=== PATIENT | female | born 1935 | race African-American/Black ===

== ENCOUNTER 2017-02-25 08:23 | Day surgery (SDC) | payer OTHER ==
[~2017-02-25] VITALS: Ht 177.8 cm; Wt 79.6 kg
[2017-02-25] MEDS ORDERED: HYDR25TA5 PO (09:24)
[2017-02-25] MEDS ORDERED: LOSA50TA PO (09:24)
[2017-02-25] MEDS ORDERED: GLIM2TAB PO (09:24)
[2017-02-25] MEDS ORDERED: ARIC10TA PO (09:24)
[2017-02-25] MEDS ORDERED: ATOR20TA15 PO (09:24)
[2017-02-25 09:31] LABS: AUTOMATED NEUTROPHIL # 2.4 TH/MM3 (1.8-7.7); BASOPHIL # 0.1 TH/MM3 (0-0.2); BASOPHIL % 2.2 % (0.0-2.0); EOSINOPHIL # 0.2 TH/MM3 (0-0.4); EOSINOPHIL % 4.4 % (0.0-4.0); HEMATOCRIT 28.8 % (35.0-46.0); HEMO FLAGS DIFF FINAL; LYMPH % 30.2 % (9.0-44.0); LYMPHOCYTE # 1.4 TH/MM3 (1.0-4.8); MEAN CELL VOLUME 89.1 FL (80.0-100.0); MEAN CORPUSCULAR HEMOGLOBIN 29.3 PG (27.0-34.0); MEAN CORPUSCULAR HGB CONC 32.9 % (32.0-36.0); MONO % 11.1 % (0.0-8.0); NEUT % 52.1 % (16.0-70.0); PLATELET COUNT 268 TH/MM3 (150-450); RED BLOOD COUNT 3.23 MIL/MM3 (4.00-5.30); RED CELL DISTRIBUTION WIDTH 13.9 % (11.6-17.2); WHITE BLOOD COUNT 4.6 TH/MM3 (4.0-11.0)
[2017-02-25 09:39] LABS: APTT (PATIENT) 21.5 SEC (24.3-30.1)
[2017-02-25 09:43] VITALS: BP 190/85; PULSE 61; RESP 16; TEMP 98.2; O2SAT 99
[2017-02-25 09:58] LABS: BICARBONATE 27.2 MEQ/L (21.0-32.0); POTASSIUM 4.8 MEQ/L (3.5-5.1)
[2017-02-25] MEDS ORDERED: HEPARIN-NS/PF INJ 500 ML ONE (10:40)
[2017-02-25] MEDS ORDERED: MIDAZOLAM HCL 2 MG/2 ML VIAL ONE (10:41)
[2017-02-25] MEDS ORDERED: VERAPAMIL HCL 5 MG/2 ML VIAL ONE (10:42)
[2017-02-25] MEDS ORDERED: HEPARIN SODIUM - IV 10,000 UNITS/10 ML VIAL ONE (10:42)
[2017-02-25] MEDS ORDERED: NITROGLYCERIN INJ 5 ML ONE (10:42)
[2017-02-25] MEDS ORDERED: IOHEXOL 350 MG/ML 100 ML BTL (for Cath Lab) OTHER ONE (10:43)
[2017-02-25] MEDS ORDERED: hydrALAZINE HCL 20 MG/ML VIAL ONE (11:41)
[2017-02-25] MEDS ORDERED: hydrALAZINE HCL 20 MG/ML VIAL IV PUSH PRN (12:00)
[2017-02-25] MEDS ORDERED: MISC INFORMATION XX ONE (12:00)
[2017-02-25] MEDS ORDERED: ONDANSETRON HCL 4 MG/2 ML VIAL IV PRN (12:00)
--- NOTE | 2017-02-25 12:01 | CATHPROC ---
Ryzing HIS Report Study Information Study Number Admission Scheduled Start Study Start [id number] 02/25/2017 02/25/2017 Feb 25 2017 10:06AM Referring Institution Admit Source Facility Department 1 Other [facility] - [facility] Physician and Clinical Staff Initial Diaz Sherman Instructional Resource Teacher Brittany Askew RN Other cathlab, cathlab Recorder Mirella Beltre BSRN Scrub Bakari, Bhakti,FLOOR COVERING PRINTER ASSISTANT TECH2 Procedures Performed Procedure Location (Site) Vessel Name Coronary Angiograms Coronary Angiograms LCA Left Coronary Coronary Angiograms RCA Right Coronary L Heart Cath Equipment Time Stenographic Court Reporter Description Size Mfg Part Number Used/Scraped TRANSDUCER, TRUWAVE 10:08 SOLIS UGARTE * [id number] Used W/Almondy INTRODUCER SET, [id number]-502-10.0- 11:19 [employer] FR 5 Used MICROPUNCTURE, STIFFENED SC-NT-U-SST MEDICAL CONCEPT DRAPE, RADIAL FEMORAL FULL 10:08 * [id number] Used DEVELOPMENT BODY 10:08 [employer] PACK, CCL CUSTOM * [id number] Used 10:08 [employer] SUPPORT, ARTERIAL ADULT [id number] Used 10:08 [employer] MEDICAL WIRE, EXCHANGE 260CM 3MMJ 260CM [id number] Used 10:08 [employer] MANIFOLD, 4 PORT * [id number] Used 10:08 [employer]ED OMNIPAQUE, 350 MG, 100ML 100ML [id number] Used 10:08 [employer] MEDICAL BLANKET,WARM AIR CCL * [id number] Used BAND, RADIAL COMPRESSION TR 10:08 TERUMO MEDICAL 29CM [id number] Used LARGE 11:24 [employer]UMO MEDICAL SHEATH, FR5 TERUMO (10CM) FR 5 [id number] Used Equipment Model, Serial, Lot Number and Expiration Data Description Model Number Serial Number Lot Number Expiration Date INTRODUCER SET, [id number] 01-13-2020 MICROPUNCTURE, STIFFENED History: Current Medications Medication Dosage/Unit Route Frequency Last Date/Time Taken LIPITOR HCTZ Statins (any) Unknown Comment: amaryl History: Allergies Allergy Reaction No Known Allergies History: Risk Factors Family History of Hypertension Dyslipidemia Previous PA Previous Heart Failure Premature CAD Yes Yes No No No Prior Valve Prior PCI Prior CABG Surgery No No No Cerebrovascular Peripheral Artery Chronic Lung On Dialysis Diabetes Disease Disease Disease No Yes No No Yes History: Stress Tests Stress or Imaging Studies Performed Yes Standard Exercise Stress Test No Stress Echo No Stress Test SPECT Stress Test SPECT Result Stress Test SPECT Ischemia Risk/Extent Yes Positive Intermediate Stress Test CMR No Cardiac CTA Coronary Calcium Score No No History: Other Disease Selection Items HTN Renal Failure/Insufficiency History: Other Current Smoker No Labs Hgb (g/dl) Hct (%) RBC (MIL/MM3) WBC (l/cumm) Platelets (thousands) 12.00-18.00 37.00-55.00 4.80-6.20 4.80-10.80 140.00-450.00 9.5 28.8 3.2 4.6 268 Glucose (mg/dl) BUN (mg/dl) Creatinine (mg/dl) BUN:Creatinine (1:x) 60.00-110.00 8.00-20.00 0.10-9.00 10.00-20.00 97 31 1.8 17.2 Na (meq/l) K (meq/l) Cl (meq/l) CO2 (mmol/L) Ca (mg/dl) 138.00-146.00 3.80-5.10 101.00-111.00 23.00-30.00 9.00-10.50 139 4.8 105 27.2 9.1 Medication Medication Total Dose (Bolus/Oral) Medication Total Dosage/Unit 1% XYLOCAINE 20 mL APRESOLINE 20 mg FENTANYL 25 mcg VERSED 0.5 mg Medications (Bolus/Oral) Medication Time Given Dosage/Unit Administered By Reason VERSED 02/25/2017 11:17:00 AM 0.5 mg Brittany Askew As per physicians shimon bal order 0.5 mg VERSED given in lab by Brittany Askew RN in Left Antecubital via Peripheral IV. Ordered by Diaz Lezama. Reason: As per physicians verbal order. FENTANYL 02/25/2017 11:18:37 AM 25 mcg Brittany Askew 25 mcg FENTANYL given in lab by Brittany Askew RN in Left Antecubital via Peripheral IV. Ordered Diaz Rutherford. 1% XYLOCAINE 02/25/2017 11:18:51 AM 20 mL Diaz Lezama As per physicians verbal order 20 mL 1% XYLOCAINE given in lab by Diaz Lezama in Right Groin via Subcutaneous. Ordered by Diaz Maravilla. Reason: As per physicians verbal order. APRESOLINE 02/25/2017 11:43:00 AM 10 mg Mrache, Brittany 10 mg APRESOLINE given in lab by Brittany Askew RN in Left Antecubital via Peripheral IV. Ordered by Diaz Lezama. APRESOLINE 02/25/2017 11:50:05 AM 10 mg Mrache, Brittany 10 mg APRESOLINE given in lab by Brittany Askew RN in Left Antecubital via Peripheral IV. Ordered by Diaz Lezama. Medication (Drip) Medication Time Given Dosage/Unit Concentration/Unit Diluent (ml) Solution IV Solutions 02/25/2017 10:45:51 AM 0 mL (IV) NaCl .9 IV Solutions given in lab by Brittany Askew RN in Left Antecubital via Peripheral IV. Pump/Drip Fl ow = 100 ml/hr using NaCl .9. Ordered by Diaz Lezama. Reason: As per physicians verbal order. Initial Case Assessment Cardiovascular HR NIBP 60 188/86 Edema Present Skin color Skin None Normal Warm Dry Neurological State Oriented to time-place- Alert Moves all extremities person Respiration - General Respiration Rate SpO2 (%) (B/min) 18 99 Final Case Assessment Cardiovascular HR Rhythm NIBP Chest Pain 63 sr 171/70 0 Edema Present Skin color Skin None Normal Warm Dry Circulatory - Right Pulses Dorsalis Pedis Femoral 2 2 Scale (0,1,2,3,4,d) Circulatory - Left Pulses Dorsalis Pedis Femoral 2 2 Scale (0,1,2,3,4,d) Circulatory - Lower Extremities Color Lower Right Color Lower Left Normal Normal Neurological State Oriented to time-place- Alert Moves all extremities person Respiration - General SpO2 (%) 99 Chronological Log Time Study Chronological Log 10:43:02 Patient arrived via Bed. 10:43:05 Patient Name, D.O.B, / Armband Verified By R.N. 10:43:07 Consent signed by the physician and the patient and verified by the [employer] staff. 10:43:09 Pre-op and post- op instructions given; patient acknowledges understanding of instructions. 10:43:12 Allens test performed on the right radial and ulnar artery. 10:43:17 Patient has been NPO for More than 6Hrs. 10:45:15 Allens test performed on the left radial and ulnar artery. 10:45:21 Patient Warmer Placed on the Table. 10:45:31 A # 22 IV was noted in the Antecubital (left). Grade = ~GRADE~ IV Solutions given in lab by Brittany Askew, RN in Left Antecubital via Peripheral IV. Pump/D rip Flow = 100 ml/hr 10:45:51 using NaCl .9. Ordered by Diaz Lezama. Reason: As per physicians verbal order. 10:57:58 Reference ECG taken 10:58:05 History and physical on the chart or being dictated. Vitals capture started with the following parameters, Patient=Adult, Interval=15 min, Initial P bwqzqhd=328 mmHg, 10:58:31 Deflation Rate=5 mmHg 10:59:52 HR=63 bpm, IATT=731/89 mmhg, SpO2=98.0 %, Resp=0 B/min, Pain=0, Hcetor=10, Pruitt=2 11:04:15 HR=62 bpm, GIOX=206/86 mmhg, SpO2=98.0 %, Resp=10 B/min, Pain=0, Hector=10, Pruitt=2 11:05:50 Pressure channel 1 zeroed. Assessment: Initial Case, HR=60 BPM, RJAM=635/86 mmhg, Edema=None, Color=Normal, Skin = Warm, D ry 11:07:33 Neurological: State=Alert, Ox3, LYNCH Respiration: Resp=18 B/min, SpO2=99 % 11:08:23 Right groin prepped with 2% chlorhexidine, and with a 3 min. waiting time. 11:09:18 HR=61 bpm, HPKK=471/81 mmhg, SpO2=99.0 %, Resp=19 B/min, Pain=0, Hector=10, Pruitt=2 11:10:33 MD paged 11:15:02 HR=58 bpm, TSLZ=355/67 mmhg, SpO2=99.0 %, Resp=13 B/min, Pain=0, Hector=10, Pruitt=2 11:16:29 MD arrived. 0.5 mg VERSED given in lab by Brittany Askew, RN in Left Antecubital via Peripheral IV. Order ed by Teja, 11:17:00 Diaz. Reason: As per physicians verbal order. Time Out. Correct patient, correct procedure,correct physician, ,power injector loaded or not l oaded with contrast with 11:17:34 surgical team present. Time Out Concurred by MD, individual staff and CONGREGATIONAL CARE PASTOR in procedure 11:17:52 Presedation re-assessment performed by Ingredient Mixer RN. 25 mcg FENTANYL given in lab by Brittany Askew, TEDDY in Left Antecubital via Peripheral IV. Ord ered by Teja 11:18:37 Diza. 11:18:48 Case Start 20 mL 1% XYLOCAINE given in lab by Diaz Lezama in Right Groin via Subcutaneous. Ordered b y Diaz Lezama. 11:18:51 Reason: As per physicians verbal order. 11:19:07 Access site was Right Femoral Artery. 11:19:16 HR=61 bpm, PQZG=641/80 mmhg, SpO2=99.0 %, Resp=8 B/min, Pain=0, Hector=10, Pruitt=2 A INTRODUCER SET, MICROPUNCTURE, STIFFENED FR 5 was advanced into the Fem Art (right) using the 11:21:21 Percutaneous technique. A SHEATH, FR5 TERUMO (10CM) FR 5 was exchanged in the Fem Art (right). This was necessary in or leticia to 11:22:10 accomodate a larger catheter. Recorded Pressure: Ao, HR=63, Condition=Condition 1 11:22:40 (Aorta) Ao 196/63/112 A JR 4.0 INFINITI CATHETER FR 5 was advanced over a wire. OMNIPAQUE, 350 MG, 100ML 100ML was us ed for 11:24:08 injections. 11:24:19 HR=61 bpm, HTQD=391/78 mmhg, SpO2=97.0 %, Resp=12 B/min, Pain=0, Hector=10, Pruitt=2 11:24:34 The ~SITE~ was injected and visualized at various angles. contrast used. Recorded Pressure: LV, HR=58, Condition=Condition 1 11:24:51 (Left Ventricle) LV 183/0/6 Recorded Pressure: LV, HR=65, Condition=Condition 1 11:25:00 (Left Ventricle) LV 185/1/11 Recorded Pressure: LV, Ao, HR=69, Condition=Condition 1 11:25:11 (Left Ventricle) LV 186/5/7, (Aorta) Ao 185/69/115 11:26:41 The RCA was injected and visualized at various angles. OMNIPAQUE, 350 MG, 100ML 100ML used . 11:29:16 HR=62 bpm, FQSC=494/73 mmhg, SpO2=97.0 %, Resp=10 B/min, Pain=0, Hector=10, Pruitt=2 After removing the current catheter a JL 4.0 INFINITI CATHETER FR 5 was advanced over a WIRE, E XCHANGE 260CM 11:29:23 3MMJ 260CM. 11:29:35 The LCA was injected and visualized at various angles. OMNIPAQUE, 350 MG, 100ML 100ML used . 11:34:21 HR=60 bpm, IEOE=382/70 mmhg, SpO2=98.0 %, Resp=9 B/min, Pain=0, Hector=10, Rpuitt=2 11:36:08 Catheter was removed 11:36:24 Case End Assessment: Final Case, HR=63 BPM, Rhythm=sr, IHHL=883/70 mmhg, Chest Pain=0, Edema=None, Color =Normal, Skin = Warm, Dry Right Pulses: Joaquin Ped=2, Femoral=2 Left Pulses: Joaquin Ped=2, Femoral=2 11:36:34 Lower Right Extremities: Color=Normal Lower Left Extremities: Color=Normal Neurological: State=Alert, Ox3, LYNCH Respiration: SpO2=99 % 11:37:14 Sheath removed; pressure applied to access site. 11:37:24 Sterile dressing applied to site 11:37:25 No case complications noted. 11:37:28 Cine recording checked. 11:37:30 Bedside Report will be given. 11:37:33 Contrast Scanned 11:37:38 A Left Heart Cath was performed. 11:37:44 Clinical correlaton risk stratification. 11:39:59 HR=86 bpm, UXFN=636/131 mmhg, SpO2=98.0 %, Resp=11 B/min, Pain=0, Hector=10, Pruitt=2 10 mg APRESOLINE given in lab by Brittany Askew, RN in Left Antecubital via Peripheral IV. Or dered by Teja, 11:43:00 Diaz. 11:44:21 HR=75 bpm, LKRY=575/96 mmhg, SpO2=99.0 %, Resp=13 B/min, Pain=0, Hector=10, Pruitt=2 11:48:16 NIBP STAT measurement started. 11:49:04 HR=80 bpm, GDJV=695/83 mmhg, VaX0=596.0 %, Resp=17 B/min, Pain=0, Hector=10, Pruitt=2 10 mg APRESOLINE given in lab by Brittany Askew, TEDDY in Left Antecubital via Peripheral IV. Or dered by Teja 11:50:05 Diaz. 11:53:04 NIBP STAT measurement started. 11:53:46 HR=68 bpm, LNEK=684/70 mmhg, LwH3=923 %, Resp=21 B/min 11:59:20 HR=74 bpm, GCSE=494/58 mmhg, SpO2=99.0 %, Resp=16 B/min, Pain=0, Hector=10, Pruitt=2 12:00:30 Patient moved to stretcher End Study - Contrast Media Used In Study Contrast Total Opened (mL) Total Used (mL) Total Wasted (mL) Omnipaque 150 60 90 End Study - Maximum Contrast Load Max Contrast Load (mL) 221.1 End Study - Radiation Exposure Fluoro Time (minutes) 3.0 End Study - Sheaths Sheaths Pulled By Sheath Hold Time (min) Bhakti Villegas End Study - Patient Disposition Complications Transferred To Interventional Outcome No [employer] [facility] Holding No attempt made
--- NOTE | 2017-02-25 14:49 | PD.CAR.PN ---
CVT Progress Note Subjective/Hospital Course: Risk Model and Variables - STS Adult Cardiac Surgery Database Version 2.81 RISK SCORES About the STS Risk Calculator Procedure: CAB Only Risk of Mortality: 6.907% Morbidity or Mortality: 42.716% Long Length of Stay: 26.071% Short Length of Stay: 8.569% Permanent Stroke: 3.562% Prolonged Ventilation: 30.526% DSW Infection: 1.508% Renal Failure: 21.427% Reoperation: 10.913% Objective: Vital Signs Date Time Temp Pulse Resp B/P Pulse Ox O2 Delivery O2 Flow Rate FiO2 02/25/17 13:08 100 Room Air 02/25/17 09:43 98.2 61 16 190/85 99 Labs: Laboratory Tests Test 02/25/17 09:00 White Blood Count 4.6 TH/MM3 (4.0-11.0) Red Blood Count 3.23 MIL/MM3 (4.00-5.30) Hemoglobin 9.5 GM/DL (11.6-15.3) Hematocrit 28.8 % (35.0-46.0) Mean Corpuscular Volume 89.1 FL (80.0-100.0) Mean Corpuscular Hemoglobin 29.3 PG (27.0-34.0) Mean Corpuscular Hemoglobin 32.9 % Concent (32.0-36.0) Red Cell Distribution Width 13.9 % (11.6-17.2) Platelet Count 268 TH/MM3 (150-450) Mean Platelet Volume 7.1 FL (7.0-11.0) Neutrophils (%) (Auto) 52.1 % (16.0-70.0) Lymphocytes (%) (Auto) 30.2 % (9.0-44.0) Monocytes (%) (Auto) 11.1 % (0.0-8.0) Eosinophils (%) (Auto) 4.4 % (0.0-4.0) Basophils (%) (Auto) 2.2 % (0.0-2.0) Neutrophils # (Auto) 2.4 TH/MM3 (1.8-7.7) Lymphocytes # (Auto) 1.4 TH/MM3 (1.0-4.8) Monocytes # (Auto) 0.5 TH/MM3 (0-0.9) Eosinophils # (Auto) 0.2 TH/MM3 (0-0.4) Basophils # (Auto) 0.1 TH/MM3 (0-0.2) CBC Comment DIFF FINAL Differential Comment Prothrombin Time 11.0 SEC (9.8-11.6) Prothromb Time International 1.0 RATIO Ratio Activated Partial 21.5 SEC Thromboplast Time (24.3-30.1) Sodium Level 139 MEQ/L (136-145) Potassium Level 4.8 MEQ/L (3.5-5.1) Chloride Level 105 MEQ/L (98-107) Carbon Dioxide Level 27.2 MEQ/L (21.0-32.0) Anion Gap 7 MEQ/L (5-15) Blood Urea Nitrogen 31 MG/DL (7-18) Creatinine 1.84 MG/DL (0.50-1.00) Estimat Glomerular Filtration 32 ML/MIN (>89) Rate Random Glucose 97 MG/DL (74-106) Calcium Level 9.1 MG/DL (8.5-10.1) Result Diagram: 02/25/17 0900 02/25/17 09 Lurdes Simon MD February 25, 2017 14:49
--- NOTE | 2017-02-25 16:24 | MB ---
cc: SCOTT NARAYAN SOHIT K. MD DOLINKY, ADRIENNE B. DATE OF CONSULTATION: 02/25/[address] Narayan. REASON FOR CONSULTATION Multivessel coronary artery disease. HISTORY OF PRESENT ILLNESS Ms. Brito is a very pleasant 82-year-old -[place] female who is relatively asymptomatic in regards to a cardiac history. She recently was being evaluated for cataract/ ophthalmic surgery and underwent a stress test which was abnormal. Based on this she was taken to the [facility] by Dr. Narayan and underwent a coronary angiogram today which reveals multivessel coronary artery disease with totally occluded LAD and associated moderate left main stenosis. I am now being consulted for surgical revascularization therapy. At the present time she remains pain free, hemodynamically stable with no evidence of ongoing ischemia. PAST MEDICAL HISTORY Significant for: 1. Significant Alzheimer's dimension. 2. Chronic renal insufficiency with chronic kidney disease stage III. 3. Diabetes mellitus. 4. Hyperlipidemia. 5. Hypertension. 6. Hypothyroidism. 7. Lumbago. ALLERGIES The patient reports NO KNOWN DRUG ALLERGIES. MEDICATION Current medications include: 1. Atorvastatin. 2. Benazepril. 3. Glimepiride. 4. Hydrochlorothiazide. 5. Levothyroxine. 6. Losartan. 7. Multivitamin. FAMILY HISTORY Noncontributory. SOCIAL HISTORY Social history is remarkable for a remote history of smoking half pack per day. Denies any alcohol use or illicit drug use. REVIEW OF SYSTEMS As above. All other parameters are negative. PHYSICAL EXAMINATION VITAL SIGNS: Today she is 178 cm tall, weighs 80 kilos, blood pressure is 190/85 with a heart rate of 61 which is regular, respiratory rate is 18 and she is afebrile. HEENT: Normocephalic, atraumatic. Pupils are round and reactive. Extraocular muscles are intact. NECK: No cervical lymphadenopathy, carotid bruits or JVD. CARDIOVASCULAR: Regular rate and rhythm. Normal S1-S2 without gallops, rubs or murmurs. LUNGS: Clear to auscultation bilaterally with good air exchange. ABDOMEN: Abdomen is soft, nontender, nondistended. Normoactive bowel sounds. No hepatosplenomegaly. EXTREMITIES: Bilateral lower extremity pulses are intact without cyanosis, clubbing or edema. No venous varicosities. NEUROLOGIC: Intact with no focal deficits. IMPRESSION 1. Multivessel coronary artery disease. 2. Hypertension. 3. Chronic kidney disease. 4. Diabetes mellitus. 5. Hyperlipidemia. 6. Hypothyroidism. 7. Dementia. PLAN The clinical angiographic findings were discussed in detail with the patient, her daughter and her granddaughters today. Therapeutic options available including coronary artery bypass grafting was recommended. I agree with Dr. Narayan that she will benefit from bypass to LAD, ramus, as well as distal right coronary artery distributions. The risks, complications and benefits of the surgical procedure were discussed in detail and all questions answered. She and her family appear to comprehend the given information and wish to proceed with the planned operation. We will proceed with the surgical procedure as described above next week on a Wednesday, on a first case basis. In the meantime we will obtain vein mapping, PFTs and carotid Duplex imaging. Thank you for allowing me to participate in the care of this patient. Lurdes HARRISON /2:54 PM /3:48 PM
--- NOTE | 2017-02-25 16:24 | HHI.DS ---
Discharge Summary Admission Date 02/25/17 Discharge Date: February 25, 2017 Admitting Diagnosis Abnormal stress test (1) Multi-vessel coronary artery stenosis Diagnosis: Principal Procedures Left heart catheterization (02/25/17) Multi-vessel CAD Brief History Multi-vessel CAD, asymptomatic. Plan CABG on 03/03/17. CBC/BMP: 02/25/17 0900 02/25/17 0900 Significant Findings Laboratory Tests Test 02/25/17 09:00 Red Blood Count 3.23 MIL/MM3 (4.00-5.30) Hemoglobin 9.5 GM/DL (11.6-15.3) Hematocrit 28.8 % (35.0-46.0) Monocytes (%) (Auto) 11.1 % (0.0-8.0) Eosinophils (%) (Auto) 4.4 % (0.0-4.0) Basophils (%) (Auto) 2.2 % (0.0-2.0) Activated Partial 21.5 SEC Thromboplast Time (24.3-30.1) Blood Urea Nitrogen 31 MG/DL (7-18) Creatinine 1.84 MG/DL (0.50-1.00) Estimat Glomerular Filtration 32 ML/MIN (>89) Rate Discharge Disposition: Discharge Home Discharge Instructions DIET: Follow Instructions for: Heart Healthy Diet Activities you can perform: See Additionl Instruction Additional Activity Instructio: Do not over exert yourself until surgery Diaz Lezama DO February 25, 2017 16:24
--- NOTE | 2017-02-25 17:16 | RADRPT ---
EXAM DATE/TIME: 02/25/2017 15:40 [facility] COMPARISON: No previous studies available for comparison. INDICATIONS : Preop testing. MEDICAL HISTORY : Thyroid disease. Cardiac disorders. Hypertension. Diabetes. SURGICAL HISTORY : None. ENCOUNTER: Initial ACUITY: 1 day PAIN SCORE: 3/10 LOCATION: Bilateral leg. TECHNIQUE: Venous ultrasound of the left and right leg was performed from the inguinal ligament to the proximal calf. Real-time, color Doppler and spectral tracing, compression and augmentation techniques were us ed. FINDINGS: RIGHT LEG: There is clot in the right greater saphenous vein. LEFT LEG: There is clot in the common, superficial and deep femoral vein, the popliteal and posterior tibial ve ins. CONCLUSION: Widespread DVT on the left. Superficial thrombosis on the right involving the greater saphenous vein. Aram Casey MD on February 25, 2017 at 17:12 Board Certified Radiologist. This report was verified electronically.
[2017-02-25] MEDS ORDERED: HYDROCHLOROTHIAZIDE 12.5 MG CAP PO SCH (17:30)
[2017-02-25] MEDS ORDERED: NS 1000P @30 MLS/HR (KVO) IV SCH (17:30)
[2017-02-25] MEDS ORDERED: LOSARTAN 50 MG TAB PO SCH (17:30)
[2017-02-25 17:37] LABS: BLOOD, URINE NEG (NEG); GLUCOSE,URINE NEG (NEG); KETONE, URINE NEG (NEG); NITRITE,URINE NEG (NEG); PH, URINE 6.5 (5.0-8.5); SQUAMOUS EPITHELIAL CELL URINE 1 /hpf (0-5); URINE COLOR LIGHT-YELLOW (YELLW/STRAW)
[2017-02-25 17:40] LABS: COMMENT (UR) CULT NOT INDICATED; CULTURE IF INDICATED CULT NOT INDICATED
--- NOTE | 2017-02-25 17:43 | RADRPT ---
EXAM DATE/TIME: 02/25/2017 14:57 [facility] COMPARISON: No previous studies available for comparison. INDICATIONS : Preop testing. MEDICAL HISTORY : Thyroid disease. Cardiac disorders. Hypertension. Diabetes. SURGICAL HISTORY : None. ENCOUNTER: Initial ACUITY: 1 day PAIN SCORE: 3/10 LOCATION: Bilateral neck PEAK SYSTOLIC VELOCITIES (cm/sec): ICA/CCA RATIO: Right: 0.7 Left: 0.7 ICA: Right: 111.1 Left: 98.4 CCA: Right: 154.8 Left: 149.9 ECA: Right: 205.4 Left: 98.4 VERTEBRAL: Right: 106.2 antegrade Left: 82.2 antegrade Elevated flow velocities and ICA/CCA ratios have been found to correlate with increased degrees of vessel stenosis, calculated as percentage of diameter relative to a normal segment of distal ICA/CCA FINDINGS: RIGHT CAROTID: Heavily calcified atherosclerotic plaque is seen involving carotid bulb and proximal ICA. The calcifi ed nature generates shadowing which limits the grayscale analysis. Velocity evaluation of the bulb sh ows a significant increase in velocity reaching 232 cm/s. LEFT CAROTID: Scattered calcified plaque throughout the artery, carotid bulb, and proximal ICA. No hemodynamically significant stenosis appreciated. ICA waveform is normal. VERTEBRAL ARTERIES: Antegrade flow is seen in both vertebral arteries. MISCELLANEOUS: None. CONCLUSION: 1. Calcified atherosclerotic plaque bilaterally more abundant on the right. A hemodynamically signifi cant stenosis is suspected involving the carotid bulb on the right. Consider CTA of the carotid arter ies to further evaluate. 2. No hemodynamically significant stenosis involving the left carotid. 3. Antegrade flow involving both vertebral arteries. Asad Vazquez Jr., MD on February 25, 2017 at 17:36 Board Certified Radiologist. This report was verified electronically.
--- NOTE | 2017-02-25 18:26 | RADRPT ---
EXAM DATE/TIME: 02/25/2017 16:38 [facility] COMPARISON: US LEG BILATERAL VENOUS DOPPLER, February 25, 2017, 15:40. INDICATIONS : Preop testing. MEDICAL HISTORY : Thyroid disease. Cardiac disorders. Hypertension. Diabetes. SURGICAL HISTORY : None. ENCOUNTER: Initial ACUITY: 1 day PAIN SCORE: 0/10 LOCATION: Bilateral leg. GREATER SAPHENOUS VEIN THIGH: PROXIMAL: Right 2 mm MID: Right 1 mm DISTAL: Right Non-visualized CALF: PROXIMAL: Right Non-visualized MID: Right Non-visualized DISTAL: Right Non-visualized FINDINGS: The venous system of the lower extremities are patent by color Doppler imaging. Measurements of the leg veins (in mm) are listed above. Only the upper and mid greater saphenous vein is seen on the right. It appears very small with very l ittle flow. There was some question of thrombus in the right greater saphenous vein on the DVT study. Although thrombus is not seen on these images, the vessel is quite small. CONCLUSION: Small greater saphenous vein only seen in the upper and mid thigh. Aram Olivas MD on February 25, 2017 at 18:21 Board Certified Radiologist. This report was verified electronically.
--- NOTE | 2017-02-25 18:43 | EKG ---
Date Performed: 02/25/2017 Time Performed: 09:27:28 PTAGE: 82 years EKG: Sinus bradycardia with sinus arrhythmia. Leftward axis Left bundle branch block Abnormal EC G NO PREVIOUS TRACING DOCTOR: Artur Figueroa Interpretating Date/Time 02/25/2017 18:42:21
--- NOTE | 2017-02-25 19:14 | RADRPT ---
EXAM DATE/TIME: 02/25/2017 18:38 [facility] COMPARISON: No previous studies available for comparison. INDICATIONS : Evaluate for pneumonia, pneumothorax, or communicable disease; preop. MEDICAL HISTORY : Thyroid disease. Cardiac disorders. Hypertension. Diabetes SURGICAL HISTORY : None. ENCOUNTER: Initial ACUITY: 1 day PAIN SCORE: 0/10 LOCATION: Bilateral chest FINDINGS: PA and lateral views of the chest demonstrate the lungs to be symmetrically aerated without evidence of mass, infiltrate or effusion. Lungs do appear mildly hyperinflated. The cardiomediastinal contour s are unremarkable. Osseous structures are intact. CONCLUSION: No acute disease. The lungs do appear mildly hyperinflated. Aram Olivas MD on February 25, 2017 at 19:12 Board Certified Radiologist. This report was verified electronically.
--- NOTE | 2017-02-25 23:29 | MA ---
cc: DIAZ NARAYAN DO DATE February 25, 2017 PROCEDURE Left heart catheterization, coronary angiogram, moderate sedation 30 minutes PREPROCEDURE DIAGNOSIS Preoperative evaluation, abnormal stress test. POSTPROCEDURE DIAGNOSIS Multivessel coronary artery disease. MEDICATIONS GIVEN 1. Versed 0.5 mg. 2. Fentanyl 25 mcg. 3. Hydralazine 20 mg. CONTRAST 60 mL. FLUOROSCOPY 3.0 minutes SEDATION Moderate sedation 30 minutes PROCEDURE IN DETAIL Marcie Brito is a pleasant 82-year-old female who originally presented to my office for preoperative evaluation due to left bundle branch block. Because of this, she underwent pharmacologic nuclear stress testing which showed anterior ischemia in a moderate area. area. Because of this, she was recommended cardiac catheterization. Both right and left radial arteries were checked and were not appropriate for radial catheterization. Because of this, there was a plan for right femoral access. Risks, benefits and alternatives were explained to her and her daughter and they consented as such. The patient was brought to the lab and prepped in the usual sterile fashion. Right femoral artery was accessed using a modified Seldinger technique with a micropuncture needle and placement of a 5-Spanish sheath. A JR-4 was advanced over a J-wire to the ascending aorta and used for selective angiography of the right coronary system. After this, it was used to cross into the left ventricle and measurement of left ventricular end-diastolic pressure and then pulled back across the aortic valve showing no significant gradient of aortic stenosis. JR-4 was then exchanged for a JL-4 which was used for selective angiography of the left coronary system. JL-4 was then removed over a J-wire. Right femoral artery sheath was then removed and pressure was held for hemostasis. The patient was noted to be quite hypertensive and given two dose of hydralazine 10 mg IV during sheath pull to lower her pressure. 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 FINDINGS Left main - overall small vessel with calcification throughout. The distal portion before trifurcation appears to have 60% lesion. LAD - overall small vessel that occludes in the mid portion. It does give off one diagonal which has a 70-80% ostial lesion. The distal LAD is supplied by collaterals from the right coronary system. Overall, the distal LAD has mild disease throughout. Ramus is a large vessel and has an upper and lower vessel to it at the bifurcation. It appears to have a 70-80% lesion at its takeoff. Left circumflex is overall an extremely small vessel with an ostial lesion of 60%. RCA is a relatively normal size vessel with tortuosity and calcium throughout. It is dominated in nature. It does have a 70-80% lesion in the mid portion. Overall extensively collateralizes the left coronary system, specifically the LAD. Left ventricular end-diastolic pressure of seven. IMPRESSION 1. Preoperative evaluation with left bundle branch block on EKG. 2. Abnormal stress testing. 3. Severe multivessel coronary artery disease. RECOMMENDATIONS 1. Ms. Brito appears to have significant multivessel coronary artery disease and I believe that her best option would be for CT surgery evaluation. 2. I discussed this with Dr. Simon who will see her in consultation for consideration. 3. If she does appear to be a CT surgery candidate, I do not believe that she needs to stay in the hospital to wait for the procedure as she has been relatively asymptomatic. I discussed this with the daughter and if there is any change in symptoms, they will let me know. If there is any concern they will get her as quickly as they can to an emergency room. 4. Further recommendations will be made after CT surgery evaluation. Thank you for allowing me to see Marcie Brito. Of there are any questions, please do not hesitate to call. Diaz Narayan DO VGP/SA /10:51 PM /11:10 PM
[2017-02-26] MEDS ORDERED: NS 1000P @30 MLS/HR (KVO) IV SCH (08:00)
--- NOTE | 2017-03-01 10:33 | RSPPFT ---
DATE OF PROCEDURE: 02/25/17 COMMENTS: Spirometry with FVC of 2.0, FEV1 of 1.6, FEV1/FVC ratio at 80%. IMPRESSION: 1. Decreased flow rates. 2. No gross obstruction. 3. Possible airways restriction. 4. If clinically warranted, lung volumes may be helpful.
== END 2017-02-25 19:15 | disposition home or self-care (01) ==
LOC: HDOC 08:23 → HDIC 08:24 → EDUNIT# 10:00 → HDOC 19:15
PROVIDERS: ATTEND Nuclear Medicine Nuclear Cardiology
DX: I25.10 Atherosclerotic heart disease of native coronary artery without angina pectoris (principal); I44.7 Left bundle-branch block, unspecified; E03.9 Hypothyroidism, unspecified; E11.9 Type 2 diabetes mellitus without complications; E78.5 Hyperlipidemia, unspecified; I12.9 Hypertensive chronic kidney disease with stage 1 through stage 4 chronic kidney disease, or unspecified chronic kidney disease; N18.3 Chronic kidney disease, stage 3 (moderate); G30.9 Alzheimer's disease, unspecified; F02.80 Dementia in other diseases classified elsewhere, unspecified severity, without behavioral disturbance, psychotic disturbance, mood disturbance, and anxiety; Z87.891 Personal history of nicotine dependence; Z01.818 Encounter for other preprocedural examination; Z01.810 Encounter for preprocedural cardiovascular examination
CPT/HCPCS: 71020; 80048; 81001; 85025; 85610; 85730; 87641; 93005; 93454; 93880; 93970; 93998; 94010; C1769; C1893; J0360; J1644; J2250; J3010; Q9967

== ENCOUNTER 2017-03-02 08:35 | Inpatient (IN) | payer OTHER, MEDICARE ==
[~2017-03-02] VITALS: Ht 170.2 cm; Wt 80.5 kg
[~2017-03-02 08:35] MED LIST: ARIC10TA PO; ATOR20TA15 PO; GLIM2TAB PO; HYDR25TA5 PO; LOSA50TA PO
[2017-03-03] VITALS (10 sets, daily range): BP systolic 115–180; BP diastolic 45–85; PULSE 72–89; RESP 12–20; TEMP 96.1–97.9; O2SAT 96–100
[2017-03-03] MEDS ORDERED: NITROGLYCERIN-DEXTROSE INJ 250 ML IV ONE (05:00)
[2017-03-03] MEDS ORDERED: LIDOCAINE HCL 2% 100 MG/5 ML SYRINGE IV PUSH ONE (05:00)
[2017-03-03] MEDS ORDERED: EPINEPHrine HCL (1:10,000) 1 MG/10 ML SYRINGE IV ONE (05:00)
[2017-03-03] MEDS ORDERED: PROPOFOL 1000 MG/100 ML INJ 100 ML IV ONE (05:00)
[2017-03-03] MEDS ORDERED: GLYCOPYRROLATE 0.2 MG/ML VIAL IV ONE (05:00)
[2017-03-03] MEDS ORDERED: MAGNESIUM SULFATE 1000 MG/2 ML VIAL (PED) IV ONE (05:00)
[2017-03-03] MEDS ORDERED: PROTAMINE SULFATE 250 MG/25 ML VIAL IV ONE (05:00)
[2017-03-03] MEDS ORDERED: HEPARIN SODIUM - SQ 10,000 UNITS/ML VIAL SQ ONE (05:00)
[2017-03-03] MEDS ORDERED: ceFAZolin INJ 1,000 MG VIAL IV ONE ×2 (05:00→11:38)
[2017-03-03] MEDS ORDERED: VECURONIUM BROMIDE 10 MG VIAL IV ONE (05:00)
[2017-03-03] MEDS ORDERED: EPINEPHrine HCL (1:1000) 1 MG/ML VIAL IV ONE (05:00)
[2017-03-03] MEDS ORDERED: AMINOCAPROIC ACID INJ 250 MG/ML 20 ML VIAL IV ONE ×2 (05:00→08:43)
[2017-03-03] MEDS ORDERED: INSULIN REGULAR 100 UNITS in NS 100 ML IV SCH (05:45)
[2017-03-03] MEDS ORDERED: PAPAVERINE 60 MG-NITROGLYCERIN 100 MCG-DILTIAZEM 100 MG in NS 100 ML IRRIGATION SCH ×4 (05:45)
[2017-03-03] MEDS ORDERED: METOPROLOL TARTRATE 25 MG TAB PO SCH (05:45)
[2017-03-03] MEDS ORDERED: CEFAZOLIN 500 MG in NS IRR BTL 500 ML IRRIGATION SCH (05:45)
[2017-03-03] MEDS ORDERED: ceFAZolin 2 GM PREMIX 50 ML IV SCH (05:45)
[2017-03-03] MEDS ORDERED: CHLORHEXIDINE GLUCONATE 4% SOLN 120 ML BTL TOPICAL SCH (05:45)
[2017-03-03] MEDS ORDERED: LACTATED RINGER'S 1000 ML IV PRN (06:30)
[2017-03-03] MEDS ORDERED: METOPROLOL TARTRATE 25 MG TAB PO PRN (06:30)
[2017-03-03] MEDS ORDERED: SODIUM CHLORID 0.9% 500 ML IV PRN (06:30)
[2017-03-03] MEDS ORDERED: POVIDONE IODINE 5% (ANTISEPSIS KIT) 4 APPLICATIONS EACH NARE PRN (06:30)
[2017-03-03] MEDS ORDERED: CHLORHEXIDINE GLUCONATE 2 % 1 PACK (2 CLOTHS) TOPICAL PRN (06:30)
[2017-03-03] MEDS ORDERED: INSULIN HUMAN REGULAR 1,000 UNITS/10 ML VIAL SQ PRN (06:30)
[2017-03-03] MEDS ORDERED: HYDR25TA5 PO (06:36)
[2017-03-03] MEDS ORDERED: ATOR20TA15 PO (06:36)
[2017-03-03] MEDS ORDERED: DONE10TA7 PO (06:36)
[2017-03-03] MEDS ORDERED: LOSA100T PO (06:36)
[2017-03-03] MEDS ORDERED: GLIM2TAB PO (06:36)
[2017-03-03] MEDS ORDERED: ceFAZolin 2 GM PREMIX 50 ML ONE (06:40)
[2017-03-03] MEDS ORDERED: VANCOMYCIN HCL 1000 MG VIAL ONE ×2 (06:40→11:13)
[2017-03-03] MEDS ORDERED: HEPARIN SODIUM - SQ 10,000 UNITS/ML VIAL ONE (06:41)
[2017-03-03] MEDS ORDERED: LEVO50TA4 PO (06:52)
[2017-03-03] MEDS ORDERED: SODIUM CHLORIDE 0.9% INJ 100 ML IV ONE (08:43)
[2017-03-03] MEDS ORDERED: SODIUM CHLOR 0.9% 1000 ML INJ 1,000 ML IV ONE (08:44)
[2017-03-03] MEDS ORDERED: SODIUM CHLOR 0.9% 250 ML INJ 250 ML IV ONE (08:44)
[2017-03-03] MEDS ORDERED: SODIUM CHLORID 0.9% 500 ML INJ 500 ML IV ONE (08:47)
[2017-03-03] MEDS ORDERED: NORMOSOL R INJ 1,000 ML IV ONE (08:48)
[2017-03-03] MEDS: MUPIROCIN 2% OINT 22 GM TUBE EACH NARE SCH ×2 (09:00→21:00)
[2017-03-03] MEDS ORDERED: POTASSIUM CHLORIDE 40 MEQ/20 ML VIAL ONE (09:02)
[2017-03-03] MEDS ORDERED: LACTATED RINGER'S 1000 ML INJ 500 ML IV PRN (11:37)
[2017-03-03] MEDS ORDERED: DOBUTamine PREMIX DRIP 250 ML IV SCH (11:37)
[2017-03-03] MEDS ORDERED: CALCIUM CHLORIDE 10% 1 GRAM/10 ML VIAL IV PRN (11:45)
[2017-03-03] MEDS ORDERED: DEXTROSE 50% IN WATER 50 ML VIAL(D50) IV PUSH PRN (11:45)
[2017-03-03] MEDS ORDERED: ALBUMIN HUMAN 5% 12.5 GM/250 ML BOTTLE IV PRN (11:45)
[2017-03-03] MEDS ORDERED: MAGNESIUM SULFATE INJ 2 GM in SODIUM CHLORIDE 0.9% INJ 100 ML IV PRN ×4 (11:45)
[2017-03-03] MEDS ORDERED: DEXMEDETOMIDINE INJ 200 MCG in SODIUM CHLORIDE 0.9% INJ 50 ML IV SCH (11:45)
[2017-03-03] MEDS ORDERED: DOPamine INJ PREMIX 500 ML IV SCH (11:45)
[2017-03-03] MEDS ORDERED: hydrALAZINE HCL 20 MG/ML VIAL IV PRN (11:45)
[2017-03-03] MEDS ORDERED: NITROGLYCERIN-DEXTROSE INJ 250 ML IV SCH (11:45)
[2017-03-03] MEDS ORDERED: ACETAMINOPHEN 650 MG SUPP RECTAL PRN (11:45)
[2017-03-03] MEDS ORDERED: EPINEPHrine (1:1000) INJ 4 MG in DEXTROSE 5% IN WATER INJ 246 ML IV SCH ×2 (11:45)
[2017-03-03] MEDS ORDERED: METOPROLOL TARTRATE 5 MG/5 ML VIAL IV PUSH PRN (11:45)
[2017-03-03] MEDS ORDERED: INSULIN REGULAR (IV INFUSION) 100 UNITS in SODIUM CHLORIDE 0.9% INJ 99 ML IV SCH (11:45)
[2017-03-03] MEDS ORDERED: CALCIUM CHLORIDE INJ 1 GM in SODIUM CHLORIDE 0.9% INJ 100 ML IV PRN (11:45)
[2017-03-03] MEDS ORDERED: MEPERIDINE HCL 25 MG/ML VIAL IV PRN (11:45)
[2017-03-03] MEDS ORDERED: PHENYLEPHRINE INJ 40 MG in DEXTROSE 5% IN WATE 500 ML INJ 496 ML IV SCH ×2 (11:45)
[2017-03-03] MEDS ORDERED: Post-op Orders (for Pharmacy) MISC OTHER ONE (11:45)
[2017-03-03] MEDS ORDERED: POTASSIUM CHLORIDE 20 MEQ CONTROLLED RELEASE TAB PO PRN ×2 (11:45)
[2017-03-03] MEDS ORDERED: ACETAMINOPHEN 325 MG TAB PO PRN (11:45)
[2017-03-03] MEDS ORDERED: POTASSIUM CHLOR 20 MEQ PREMIX 100 ML IV PRN ×3 (11:45)
--- NOTE | 2017-03-03 11:49 | PD.OP ---
cc: Lurdes Simon MD; Diaz Lezama DO Operative Report Date of Surgery: March 03, 2017 Preoperative Diagnosis: Postoperative Diagnosis: Procedure: 1. Clampless Off-pump Coronary Artery Bypass Grafting x 3 with left internal mammary artery (ROJAS) left anterior descending (LAD), reverse saphenous vein graft to the RCA, reverse sequential saphenous vein graft to the ramus marginalis 2. Left Leg Endoscopic Vein [place] 3. Intraoperative Vein Mapping. . Surgeon: Lurdes Simon Home Visit Field Care Manager(s): Suhail Winters Operation and Findings: PREPROCEDURE DIAGNOSES 1. Severe Multi Vessel Coronary Artery Disease. 2. Left Main Stenosis 3. Chronic Renal Insufficiency POSTPROCEDURE DIAGNOSES Same SURGICAL PROCEDURE 1. Clampless Off-pump Coronary Artery Bypass Grafting x 3 with left internal mammary artery (ROJAS) left anterior descending (LAD), reverse saphenous vein graft to the RCA, reverse sequential saphenous vein graft to the ramus marginalis 2. Left Leg Endoscopic Vein [place] 3. Intraoperative Vein Mapping. SURGEON Lurdes Simon MD FIREARMS SPECIALIST AIDA Irwin CSFA ANESTHESIA General endotracheal ELEVATOR CONSTRUCTOR SUPERVISOR DIANA Negro MD PREPARATION ChloraPrep. COUNTS Needle, sponge, and instrument counts were correct. DRAINS Two 32-Urdu mediastinal tubes. COMPLICATIONS None. INDICATIONS FOR PROCEDURE The patient is a 82-year-old presenting with abnormal stress test. Patient was noted to have multi-vessel coronary artery disease. The patient is being brought to the operating room for surgical revascularization therapy. PROCEDURE Patient was brought to the operating room and placed supine on the OR table. Following the induction of adequate general endotracheal anesthesia and placement of appropriate monitoring devices, intraoperative vein mapping was performed which revealed suitable-caliber conduit in bilateral lower extremities. The patient was then prepped and draped in standard sterile fashion. Next, 2500 units of intravenous heparin was given. The left greater saphenous vein was harvested endoscopically. This appeared to be a useable- caliber conduit. Simultaneously, a median sternotomy was performed and the left internal mammary artery dissected free off the posterior sternal table. The patient was systemically heparinized and anticoagulation monitored by serial ACT measurements. The internal mammary artery had excellent pulsatile flow in it and was a good-caliber conduit. The pericardium was then divided in the midline, the cradle created and targets analyzed. At this point, all anastomoses were performed in a beating-heart fashion using the Maquet stabilizing system with intracoronary shunts. The left internal mammary artery was anastomosed to the LAD (2 mm) in an end-to-side fashion using a running 7-0 Prolene. The segment of reverse saphenous vein was anastomosed to the RCA (2.75 mm) in an end-to-side fashion using a running 7-0 Prolene. The final segment of saphenous vein graft was then anastomosed to the ramus (1.75 mm) in an end-to- side fashion using 7-0 Prolene. The proximal anastomoses were then constructed to the ascending aorta in a running manner using 6-0 Prolene in a clampless fashion using the Heartstring III facilitating device due to extensive calcification of the ascending aorta. All anastomotic sites were inspected and appeared to be hemostatic and patent. Protamine solution was given. Strict hemostasis was assured. The closure was undertaken. 2 chest tubes were placed. The pericardium was reapproximated in the midline. The sternum was approximated using sternal wires. The muscular and fascial layer were then closed in 3 layers. The endoscopic vein harvest site was closed in 2 layers. The patient tolerated the procedure well and was transferred to CVICU in stable condition. Lurdes Simon MD March 03, 2017 11:49
[2017-03-03] MEDS ORDERED: RESP: ALBUTEROL 2.5 MG/IPRATROPIUM 0.5 MG NEB (PRN) NEB (13:00)
[2017-03-03] MEDS ORDERED: RESP: RACEPINEPHRINE 2.25% 0.5 ML NEB NEB PRN (13:00)
[2017-03-03] MEDS ORDERED: MIDAZOLAM HCL 5 MG/5 ML VIAL ONE (13:03)
[2017-03-03] MEDS ORDERED: fentaNYL CITRATE 1000 MCG/20 ML VIAL ONE (13:03)
--- NOTE | 2017-03-03 13:16 | RADRPT ---
EXAM DATE/TIME: 03/03/2017 12:38 [facility] COMPARISON: CHEST PA & LAT, February 25, 2017, 18:38. INDICATIONS : S/P CABG. MEDICAL HISTORY : Thyroid disease. Cardiac disorders. Hypertension. Diabetes SURGICAL HISTORY : None. ENCOUNTER: Initial ACUITY: 1 day PAIN SCORE: Non-responsive. LOCATION: Bilateral chest FINDINGS: A single view of the chest demonstrates upper lobe atelectasis. Status post CABG. Mediastinal left-si ded chest tube without pneumothorax. Endotracheal tube with tip 4.5 cm above the jim. Nasogastric tube with tip in distal esophagus. Right jugular central line with tip in the caval atrial junction. Osseous structures are intact. CONCLUSION: 1. Status post CABG. 2. Bilateral upper lobe atelectasis. 3. Support lines and tubes are described above. Nasogastric tube should be advanced into the stomach. Erick Schmidt MD on March 03, 2017 at 13:13 Board Certified Radiologist. This report was verified electronically.
[2017-03-03] MEDS: CLEVIDIPINE INJ 50 ML IV SCH ×2 (13:41→14:12)
[2017-03-03] MEDS: ACETAMINOPHEN 1000 MG/100 ML VIAL IV SCH ×2 (13:41→19:57)
[2017-03-03] MEDS: ceFAZolin 2 GM PREMIX 50 ML IV SCH (14:12)
[2017-03-03] MEDS: RESP: ALBUTEROL 2.5 MG/IPRATROPIUM 0.5 MG NEB (SCH) NEB ×2 (17:35→22:31)
[2017-03-03] MEDS: ONDANSETRON HCL 4 MG/2 ML VIAL IV PUSH PRN (18:13)
[2017-03-03] MEDS: MORPHINE SULFATE 4 MG/ML INJ IV PRN ×2 (21:40→21:53)
[2017-03-03] MEDS: AMIODARONE 200 MG TAB PO SCH (21:40)
[2017-03-04] VITALS (17 sets, daily range): BP systolic 101–151; BP diastolic 40–81; PULSE 72–98; RESP 16–18; TEMP 97.7–98.8; O2SAT 95–99
[2017-03-04] MEDS: ACETAMINOPHEN 1000 MG/100 ML VIAL IV SCH ×2 (00:44→06:29)
[2017-03-04] MEDS: ONDANSETRON HCL 4 MG/2 ML VIAL IV PUSH PRN ×2 (00:45→09:30)
[2017-03-04] MEDS: ceFAZolin 2 GM PREMIX 50 ML IV SCH ×2 (00:45→07:37)
[2017-03-04] MEDS: RESP: ALBUTEROL 2.5 MG/IPRATROPIUM 0.5 MG NEB (SCH) NEB ×3 (03:14→13:33)
[2017-03-04] MEDS: CLEVIDIPINE INJ 50 ML IV SCH (03:58)
[2017-03-04 04:50] LABS: HEMATOCRIT 25.2 % (35.0-46.0); MEAN CELL VOLUME 89.2 FL (80.0-100.0); MEAN CORPUSCULAR HEMOGLOBIN 29.7 PG (27.0-34.0); MEAN CORPUSCULAR HGB CONC 33.3 % (32.0-36.0); PLATELET COUNT 248 TH/MM3 (150-450); RED BLOOD COUNT 2.83 MIL/MM3 (4.00-5.30); REVIEW FLAG FINAL; WHITE BLOOD COUNT 12.3 TH/MM3 (4.0-11.0)
[2017-03-04 05:05] LABS: BICARBONATE 19.1 MEQ/L (21.0-32.0); MAGNESIUM 2.4 MG/DL (1.5-2.5); POTASSIUM 4.9 MEQ/L (3.5-5.1)
--- NOTE | 2017-03-04 05:13 | RADRPT ---
EXAM DATE/TIME: 03/04/2017 04:20 [facility] COMPARISON: CHEST SINGLE AP, March 03, 2017, 12:38. INDICATIONS : Shortness of breath, possible pulmonary disease. MEDICAL HISTORY : Hypertension. Diabetes mellitus type II. SURGICAL HISTORY : CABG. ENCOUNTER: Subsequent ACUITY: 2 days PAIN SCORE: Non-responsive. LOCATION: Bilateral chest FINDINGS: A single view of the chest demonstrates the lungs to be symmetrically aerated without evidence of mas s, infiltrate or effusion. The cardiomediastinal contours are unremarkable. Left thoracostomy tubes without pneumothorax. Right-sided central line. Osseous structures are intact. Median sternotomy wir es. CONCLUSION: Clear lungs. No pneumothorax. Asad Vazquez Jr., MD on March 04, 2017 at 5:11 Board Certified Radiologist. This report was verified electronically.
[2017-03-04] MEDS: PANTOPRAZOLE SOD 40 MG DELAYED RELEASE TAB PO SCH (06:29)
--- NOTE | 2017-03-04 07:40 | PD.CAR.PN ---
CVT Progress Note Subjective/Hospital Course: 82 yo with Multivessel CAD 03/03 SURGICAL PROCEDURE 1. Clampless Off-pump Coronary Artery Bypass Grafting x 3 with left internal mammary artery (ROJAS) left anterior descending (LAD), reverse saphenous vein graft to the RCA, reverse sequential saphenous vein graft to the ramus marginalis 2. Left Leg Endoscopic Vein [place] 3. Intraoperative Vein Mapping. 03/04 Doing well Extubated and tolerating Transfer Telemetry Maintain CT Beta hal Objective: Vital Signs Date Time Temp Pulse Resp B/P Pulse Ox O2 Delivery O2 Flow Rate FiO2 03/04/17 03:00 98.8 85 18 123/53 99 120/40 03/04/17 03:00 85 03/04/17 02:45 18 03/04/17 01:14 22 03/04/17 00:05 20 03/03/17 23:00 89 03/03/17 23:00 97.8 89 18 138/65 99 146/45 03/03/17 19:00 85 03/03/17 19:00 96.8 85 18 164/79 97 172/67 03/03/17 17:45 50 03/03/17 16:58 96 Nasal Cannula 4.00 03/03/17 16:58 96 Nasal Cannula 4 03/03/17 16:00 40 03/03/17 15:57 96.1 03/03/17 15:24 40 03/03/17 15:00 96.1 72 12 115/85 99 143/55 03/03/17 15:00 72 03/03/17 14:49 96.1 03/03/17 13:50 75 03/03/17 13:50 97.7 75 12 134/57 99 153/71 03/03/17 12:10 97.7 03/03/17 12:10 50 03/03/17 12:05 99 50 Labs: Laboratory Tests Test 03/04/17 04:15 White Blood Count 12.3 TH/MM3 (4.0-11.0) Red Blood Count 2.83 MIL/MM3 (4.00-5.30) Hemoglobin 8.4 GM/DL (11.6-15.3) Hematocrit 25.2 % (35.0-46.0) Mean Corpuscular Volume 89.2 FL (80.0-100.0) Mean Corpuscular Hemoglobin 29.7 PG (27.0-34.0) Mean Corpuscular Hemoglobin 33.3 % Concent (32.0-36.0) Red Cell Distribution Width 14.0 % (11.6-17.2) Platelet Count 248 TH/MM3 (150-450) Mean Platelet Volume 7.6 FL (7.0-11.0) Sodium Level 137 MEQ/L (136-145) Potassium Level 4.9 MEQ/L (3.5-5.1) Chloride Level 105 MEQ/L (98-107) Carbon Dioxide Level 19.1 MEQ/L (21.0-32.0) Anion Gap 13 MEQ/L (5-15) Blood Urea Nitrogen 31 MG/DL (7-18) Creatinine 1.78 MG/DL (0.50-1.00) Estimat Glomerular Filtration 33 ML/MIN (>89) Rate Random Glucose 214 MG/DL (74-106) Calcium Level 9.2 MG/DL (8.5-10.1) Magnesium Level 2.4 MG/DL (1.5-2.5) Result Diagram: 03/04/17 0415 03/04/17 0415 (1) S/P CABG x 3 (2) CAD in [place] artery (3) Carotid artery disease Lurdes Simon MD March 04, 2017 07:40
[2017-03-04] MEDS ORDERED: GLUCAGON 1 MG/ML VIAL OTHER PRN (07:45)
[2017-03-04] MEDS ORDERED: BISACODYL 10 MG SUPP RECTAL PRN (07:45)
[2017-03-04] MEDS ORDERED: DEXTROSE 50% IN WATER 50 ML VIAL(D50) IV PRN (07:45)
[2017-03-04] MEDS ORDERED: SOD PHOSPHATE/SOD BIPHOSPHATE (ADULT) ENEMA 133ML RECTAL PRN (07:45)
[2017-03-04] MEDS: AMIODARONE 200 MG TAB PO SCH ×2 (09:45→21:29)
[2017-03-04] MEDS: CLOPIDOGREL 75 MG TAB PO SCH (09:45)
[2017-03-04] MEDS: METOPROLOL TARTRATE 25 MG TAB PO SCH ×2 (09:45→21:29)
[2017-03-04] MEDS: ASPIRIN 81 MG CHEW TAB PO SCH (09:45)
[2017-03-04] MEDS: MORPHINE SULFATE 4 MG/ML INJ IV PRN ×2 (10:15)
[2017-03-04] MEDS ORDERED: BENZOCAINE-MENTHOL (SUGAR FREE) 15 MG-3.6 MG LOZENGE BUCCAL PRN (10:45)
[2017-03-04] MEDS: INSULIN ASPART SUPPLEMENTAL SCALE SQ SCH ×3 (11:11→17:04)
--- NOTE | 2017-03-04 15:52 | EKG ---
Date Performed: 03/04/2017 Time Performed: 05:07:08 PTAGE: 82 years EKG: Sinus arrhythmia Short LA interval Left bundle branch block Abnormal ECG PREVIOUS TRACING : 02/25/2017 09.27 Compared to prior tracing no significant change DOCTOR: Nj Louis Interpretating Date/Time 03/04/2017 15:51:28
[2017-03-04] MEDS: ceFAZolin 1,000 MG/NS 100 ML IV SCH ×2 (17:04)
[2017-03-04] MEDS ORDERED: cefTRIAXone 1 GM PREMIX INJ 50 ML IV SCH (18:00)
[2017-03-04] MEDS: ATORVASTATIN 40 MG TAB PO SCH (18:24)
[2017-03-04] MEDS: ACETAMINOPHEN/HYDROcodone 325 MG/5 MG TAB PO PRN ×2 (18:25→21:29)
[2017-03-04] MEDS: MAGNESIUM HYDROXIDE SUSP 30 ML CUP PO SCH (18:27)
[2017-03-04] MEDS ORDERED: HALOPERIDOL LACTATE 5 MG/ML AMP IM PRN (20:45)
[2017-03-04] MEDS: MUPIROCIN 2% OINT 22 GM TUBE EACH NARE SCH (21:00)
[2017-03-04] MEDS: SENNOSIDES 8.6 MG TAB PO SCH (21:29)
[2017-03-04] MEDS: DOCUSATE SODIUM 100 MG CAP PO SCH (21:29)
[2017-03-04] MEDS: DONEPEZIL HCL 5 MG TAB PO SCH (21:29)
[2017-03-05] VITALS (30 sets, daily range): BP systolic 112–158; BP diastolic 54–72; PULSE 70–102; RESP 16–18; TEMP 98–98.8; O2SAT 96–100
[2017-03-05] MEDS: INSULIN ASPART SUPPLEMENTAL SCALE SQ SCH ×6 (00:48→22:34)
[2017-03-05] MEDS: ACETAMINOPHEN/HYDROcodone 325 MG/5 MG TAB PO PRN ×2 (03:19→06:42)
[2017-03-05] MEDS: RESP: ALBUTEROL 2.5 MG/IPRATROPIUM 0.5 MG NEB (SCH) NEB ×6 (03:40→21:39)
[2017-03-05] MEDS: PANTOPRAZOLE SOD 40 MG DELAYED RELEASE TAB PO SCH (05:31)
[2017-03-05] MEDS: ceFAZolin 1,000 MG/NS 100 ML IV SCH ×2 (05:31)
[2017-03-05] MEDS: LEVOTHYROXINE SODIUM 50 MCG TAB PO SCH (05:31)
[2017-03-05 06:31] LABS: AUTOMATED NEUTROPHIL # 11.1 TH/MM3 (1.8-7.7); BASOPHIL % 0.2 % (0.0-2.0); HEMATOCRIT 23.3 % (35.0-46.0); HEMO FLAGS DIFF FINAL; LYMPH % 7.3 % (9.0-44.0); MEAN CELL VOLUME 89.2 FL (80.0-100.0); MEAN CORPUSCULAR HEMOGLOBIN 28.9 PG (27.0-34.0); MEAN CORPUSCULAR HGB CONC 32.4 % (32.0-36.0); MONO % 8.9 % (0.0-8.0); NEUT % 83.6 % (16.0-70.0); PLATELET COUNT 228 TH/MM3 (150-450); RED BLOOD COUNT 2.61 MIL/MM3 (4.00-5.30); RED CELL DISTRIBUTION WIDTH 13.9 % (11.6-17.2); WHITE BLOOD COUNT 13.2 TH/MM3 (4.0-11.0)
[2017-03-05 06:51] LABS: BICARBONATE 29.1 MEQ/L (21.0-32.0); MAGNESIUM 2.6 MG/DL (1.5-2.5); POTASSIUM 4.5 MEQ/L (3.5-5.1)
[2017-03-05] MEDS: MUPIROCIN 2% OINT 22 GM TUBE EACH NARE SCH (09:00)
[2017-03-05] MEDS: ATORVASTATIN 40 MG TAB PO SCH (09:01)
[2017-03-05] MEDS: METOPROLOL TARTRATE 25 MG TAB PO SCH ×2 (09:02→20:36)
[2017-03-05] MEDS: DOCUSATE SODIUM 100 MG CAP PO SCH ×2 (09:02→20:36)
[2017-03-05] MEDS: HYDROCHLOROTHIAZIDE 25 MG TAB PO SCH (09:02)
[2017-03-05] MEDS: AMIODARONE 200 MG TAB PO SCH ×2 (09:02→20:36)
[2017-03-05] MEDS: CLOPIDOGREL 75 MG TAB PO SCH (09:02)
[2017-03-05] MEDS: GLIMEPIRIDE 2 MG TAB PO SCH (09:02)
[2017-03-05] MEDS: ASPIRIN 81 MG CHEW TAB PO SCH (09:02)
[2017-03-05] MEDS: MAGNESIUM HYDROXIDE SUSP 30 ML CUP PO SCH (09:03)
[2017-03-05] MEDS: MULTIVITAMIN INJ 10 ML, THIAMINE INJ 500 MG, FOLIC ACID INJ 1 MG in SODIUM CHLORID 0.9%... IV SCH (09:22)
--- NOTE | 2017-03-05 10:20 | PD.CAR.PN ---
CVT Progress Note Subjective/Hospital Course: 82 yo with Multivessel CAD 03/03 SURGICAL PROCEDURE 1. Clampless Off-pump Coronary Artery Bypass Grafting x 3 with left internal mammary artery (ROJAS) left anterior descending (LAD), reverse saphenous vein graft to the RCA, reverse sequential saphenous vein graft to the ramus marginalis 2. Left Leg Endoscopic Vein [place] 3. Intraoperative Vein Mapping. 03/04 Doing well Extubated and tolerating Transfer Telemetry Maintain CT Beta hal 03/05 Confused this am D/C CT Discharge planning Objective: Vital Signs Date Time Temp Pulse Resp B/P Pulse Ox O2 Delivery O2 Flow Rate FiO2 03/05/17 06:32 102 03/05/17 05:03 89 03/05/17 04:00 70 03/05/17 03:53 98.0 89 137/67 97 03/05/17 03:00 82 03/05/17 02:00 86 03/05/17 01:02 74 03/05/17 00:00 76 03/04/17 23:00 97.7 72 101/55 96 03/04/17 23:00 78 03/04/17 22:00 92 03/04/17 21:00 86 03/04/17 20:00 82 03/04/17 19:00 98.2 78 151/80 97 03/04/17 19:00 86 03/04/17 18:01 84 03/04/17 17:00 83 03/04/17 16:00 88 03/04/17 15:15 82 03/04/17 15:15 97.9 82 16 142/81 95 03/04/17 14:00 87 03/04/17 13:00 96 03/04/17 12:00 98 03/04/17 11:30 98.0 98 16 134/62 96 03/04/17 11:30 97 Labs: Laboratory Tests Test 03/05/17 06:00 White Blood Count 13.2 TH/MM3 (4.0-11.0) Red Blood Count 2.61 MIL/MM3 (4.00-5.30) Hemoglobin 7.6 GM/DL (11.6-15.3) Hematocrit 23.3 % (35.0-46.0) Mean Corpuscular Volume 89.2 FL (80.0-100.0) Mean Corpuscular Hemoglobin 28.9 PG (27.0-34.0) Mean Corpuscular Hemoglobin 32.4 % Concent (32.0-36.0) Red Cell Distribution Width 13.9 % (11.6-17.2) Platelet Count 228 TH/MM3 (150-450) Mean Platelet Volume 7.3 FL (7.0-11.0) Neutrophils (%) (Auto) 83.6 % (16.0-70.0) Lymphocytes (%) (Auto) 7.3 % (9.0-44.0) Monocytes (%) (Auto) 8.9 % (0.0-8.0) Eosinophils (%) (Auto) 0.0 % (0.0-4.0) Basophils (%) (Auto) 0.2 % (0.0-2.0) Neutrophils # (Auto) 11.1 TH/MM3 (1.8-7.7) Lymphocytes # (Auto) 1.0 TH/MM3 (1.0-4.8) Monocytes # (Auto) 1.2 TH/MM3 (0-0.9) Eosinophils # (Auto) 0.0 TH/MM3 (0-0.4) Basophils # (Auto) 0.0 TH/MM3 (0-0.2) CBC Comment DIFF FINAL Differential Comment Sodium Level 138 MEQ/L (136-145) Potassium Level 4.5 MEQ/L (3.5-5.1) Chloride Level 103 MEQ/L (98-107) Carbon Dioxide Level 29.1 MEQ/L (21.0-32.0) Anion Gap 6 MEQ/L (5-15) Blood Urea Nitrogen 41 MG/DL (7-18) Creatinine 2.24 MG/DL (0.50-1.00) Estimat Glomerular Filtration 25 ML/MIN (>89) Rate Random Glucose 59 MG/DL (74-106) Calcium Level 9.2 MG/DL (8.5-10.1) Magnesium Level 2.6 MG/DL (1.5-2.5) Result Diagram: 03/05/17 0600 03/05/17 0600 (1) S/P CABG x 3 (2) CAD in [place] artery (3) Carotid artery disease Lurdes Simon MD March 05, 2017 10:20
[2017-03-05] MEDS: SENNOSIDES 8.6 MG TAB PO SCH (20:36)
[2017-03-05] MEDS: DONEPEZIL HCL 5 MG TAB PO SCH (20:36)
[2017-03-06] VITALS (29 sets, daily range): BP systolic 124–153; BP diastolic 62–75; PULSE 68–115; RESP 14–16; TEMP 98–98.8; O2SAT 94–100
[2017-03-06] MEDS: INSULIN ASPART SUPPLEMENTAL SCALE SQ SCH ×4 (07:00→21:00)
[2017-03-06] MEDS: POLYETHYLENE GLYCOL 17 GM PKG PO SCH ×2 (08:18→09:00)
[2017-03-06] MEDS: AMIODARONE 200 MG TAB PO SCH ×2 (08:19→21:00)
[2017-03-06] MEDS: PANTOPRAZOLE SOD 40 MG DELAYED RELEASE TAB PO SCH (08:19)
[2017-03-06] MEDS: LEVOTHYROXINE SODIUM 50 MCG TAB PO SCH (08:19)
[2017-03-06] MEDS: HYDROCHLOROTHIAZIDE 25 MG TAB PO SCH (08:19)
[2017-03-06] MEDS: MAGNESIUM HYDROXIDE SUSP 30 ML CUP PO SCH (08:19)
[2017-03-06] MEDS: CLOPIDOGREL 75 MG TAB PO SCH (08:19)
[2017-03-06] MEDS: GLIMEPIRIDE 2 MG TAB PO SCH (08:19)
[2017-03-06] MEDS: ATORVASTATIN 40 MG TAB PO SCH (08:19)
[2017-03-06] MEDS: ASPIRIN 81 MG CHEW TAB PO SCH (08:19)
[2017-03-06] MEDS: METOPROLOL TARTRATE 25 MG TAB PO SCH ×2 (08:20→21:00)
[2017-03-06] MEDS: DOCUSATE SODIUM 100 MG CAP PO SCH ×2 (08:20→21:00)
[2017-03-06] MEDS: MULTIVITAMIN INJ 10 ML, THIAMINE INJ 500 MG, FOLIC ACID INJ 1 MG in SODIUM CHLORID 0.9%... IV SCH (08:21)
[2017-03-06] MEDS: MUPIROCIN 2% OINT 22 GM TUBE EACH NARE SCH ×2 (09:00→21:00)
[2017-03-06] MEDS: RESP: ALBUTEROL 2.5 MG/IPRATROPIUM 0.5 MG NEB (SCH) NEB ×3 (10:48→22:34)
--- NOTE | 2017-03-06 12:32 | PD.CAR.PN ---
CVT Progress Note CVT: POD #: 3 Subjective/Hospital Course: 82 yo with Multivessel CAD 03/03 SURGICAL PROCEDURE 1. Clampless Off-pump Coronary Artery Bypass Grafting x 3 with left internal mammary artery (ROJAS) left anterior descending (LAD), reverse saphenous vein graft to the RCA, reverse sequential saphenous vein graft to the ramus marginalis 2. Left Leg Endoscopic Vein [place] 3. Intraoperative Vein Mapping. 03/04 Doing well Extubated and tolerating Transfer Telemetry Maintain CT Beta hal 03/05 Confused this am D/C CT Discharge planning 03/06/17 Lethargic, confused. Does not appear to be having pain Objective: Vital Signs Date Time Temp Pulse Resp B/P Pulse Ox O2 Delivery O2 Flow Rate FiO2 03/06/17 11:18 98.0 76 16 124/68 100 03/06/17 11:00 77 03/06/17 10:00 79 03/06/17 09:00 83 03/06/17 08:00 88 03/06/17 08:00 98.2 77 16 127/72 94 03/06/17 07:00 115 03/06/17 05:01 87 03/06/17 04:42 74 03/06/17 04:00 98.4 78 16 147/71 98 03/06/17 03:06 81 03/06/17 02:00 68 03/06/17 01:00 70 03/06/17 00:00 86 03/06/17 00:00 98.0 76 16 148/68 100 03/05/17 23:00 88 03/05/17 22:00 80 03/05/17 21:40 97 21 03/05/17 21:00 76 03/05/17 20:00 74 03/05/17 20:00 98.8 75 16 158/72 100 Manual Cuff/Auscultation 03/05/17 19:00 76 03/05/17 18:01 78 03/05/17 17:01 96 03/05/17 16:00 78 03/05/17 15:15 98.1 81 18 131/70 99 03/05/17 15:00 76 03/05/17 14:01 71 03/05/17 13:00 74 Result Diagram: 03/05/17 0600 03/05/17 0600 Imaging: Last Impressions Chest X-Ray 03/04/17 0500 Signed Impressions: Service Date/Time: February 04:20 - CONCLUSION: Clear lungs. No pneumothorax. Asad Vazquez Jr., MD Cardiovascular: RRR Telemetry: NSR Pulmonary: Decreased BS bilat GI/: NABS, NT Incision: dry and intact Plan: Encourage ambulation, up in chair Minimize pain meds CXR, CBC, BMP in AM Stim BM Consider diuresis (1) S/P CABG x 3 (2) CAD in [place] artery (3) Carotid artery disease Ramona Oneill MD March 06, 2017 12:31
[2017-03-06] MEDS: SENNOSIDES 8.6 MG TAB PO SCH (21:00)
[2017-03-06] MEDS: DONEPEZIL HCL 5 MG TAB PO SCH (21:00)
[2017-03-06] MEDS: ACETAMINOPHEN/HYDROcodone 325 MG/5 MG TAB PO PRN (23:50)
[2017-03-07] VITALS (29 sets, daily range): BP systolic 127–159; BP diastolic 60–82; PULSE 62–86; RESP 14–18; TEMP 97.5–98.9; O2SAT 95–99
[2017-03-07] MEDS: RESP: ALBUTEROL 2.5 MG/IPRATROPIUM 0.5 MG NEB (SCH) NEB ×3 (03:26→15:38)
[2017-03-07 04:43] LABS: MEAN CELL VOLUME 89.8 FL (80.0-100.0); MEAN CORPUSCULAR HGB CONC 32.3 % (32.0-36.0); PLATELET COUNT 207 TH/MM3 (150-450); RED BLOOD COUNT 2.24 MIL/MM3 (4.00-5.30); WHITE BLOOD COUNT 10.2 TH/MM3 (4.0-11.0)
[2017-03-07 04:45] LABS: REVIEW FLAG FINAL
[2017-03-07 04:48] LABS: HEMATOCRIT 20.1 % (35.0-46.0)
--- NOTE | 2017-03-07 04:51 | RADRPT ---
EXAM DATE/TIME: 03/07/2017 04:35 [facility] COMPARISON: CHEST SINGLE AP, March 04, 2017, 4:20. INDICATIONS : Shortness of breath, possible pulmonary disease. MEDICAL HISTORY : Hypertension. Diabetes mellitus type II. SURGICAL HISTORY : CABG. ENCOUNTER: Subsequent ACUITY: 4 - 6 days PAIN SCORE: Non-responsive. LOCATION: Bilateral chest FINDINGS: The left chest tube has been removed. The right central line has been removed. There is no evidence o f pneumothorax. There is mild bibasilar atelectasis. Heart size is stable. Otherwise, no significant changes compared to the prior study. CONCLUSION: 1. No evidence of pneumothorax. 2. Mild bibasilar atelectasis. Kirk Baker MD on March 07, 2017 at 4:48 Board Certified Radiologist. This report was verified electronically.
[2017-03-07 05:07] LABS: BICARBONATE 28.1 MEQ/L (21.0-32.0); POTASSIUM 4.7 MEQ/L (3.5-5.1)
[2017-03-07] MEDS: LEVOTHYROXINE SODIUM 50 MCG TAB PO SCH (06:00)
[2017-03-07] MEDS: PANTOPRAZOLE SOD 40 MG DELAYED RELEASE TAB PO SCH (06:00)
[2017-03-07] MEDS ORDERED: FUROSEMIDE 40 MG/4 ML VIAL IV PUSH PRN (06:00)
[2017-03-07] MEDS: INSULIN ASPART SUPPLEMENTAL SCALE SQ SCH ×4 (07:00→21:19)
[2017-03-07] MEDS: ASPIRIN 81 MG CHEW TAB PO SCH (08:46)
[2017-03-07] MEDS: AMIODARONE 200 MG TAB PO SCH ×2 (08:46→21:06)
[2017-03-07] MEDS: POLYETHYLENE GLYCOL 17 GM PKG PO SCH (08:46)
[2017-03-07] MEDS: DOCUSATE SODIUM 100 MG CAP PO SCH ×2 (08:46→21:00)
[2017-03-07] MEDS: ATORVASTATIN 40 MG TAB PO SCH (08:47)
[2017-03-07] MEDS: METOPROLOL TARTRATE 25 MG TAB PO SCH ×2 (08:47→21:06)
[2017-03-07] MEDS: CLOPIDOGREL 75 MG TAB PO SCH (08:47)
[2017-03-07] MEDS: GLIMEPIRIDE 2 MG TAB PO SCH (08:48)
[2017-03-07] MEDS: MAGNESIUM HYDROXIDE SUSP 30 ML CUP PO SCH (08:48)
[2017-03-07] MEDS: HYDROCHLOROTHIAZIDE 25 MG TAB PO SCH (08:48)
[2017-03-07] MEDS: MULTIVITAMIN INJ 10 ML, THIAMINE INJ 500 MG, FOLIC ACID INJ 1 MG in SODIUM CHLORID 0.9%... IV SCH (09:12)
--- NOTE | 2017-03-07 09:26 | PD.CAR.PN ---
CVT Progress Note CVT: POD #: 4 Subjective/Hospital Course: 82 yo with Multivessel CAD 03/03 SURGICAL PROCEDURE 1. Clampless Off-pump Coronary Artery Bypass Grafting x 3 with left internal mammary artery (ROJAS) left anterior descending (LAD), reverse saphenous vein graft to the RCA, reverse sequential saphenous vein graft to the ramus marginalis 2. Left Leg Endoscopic Vein [place] 3. Intraoperative Vein Mapping. 03/04 Doing well Extubated and tolerating Transfer Telemetry Maintain CT Beta hal 03/05 Confused this am D/C CT Discharge planning 03/06/17 Lethargic, confused. Does not appear to be having pain 03/07/17 Found to be anemic with Hgb at 6.5 Plan to transfuse 2 units pRBC and diurese More alert, no complaints Objective: Vital Signs Date Time Temp Pulse Resp B/P Pulse Ox O2 Delivery O2 Flow Rate FiO2 03/07/17 07:00 98.4 79 18 134/64 96 03/07/17 06:00 86 03/07/17 05:49 98.9 69 14 129/68 96 03/07/17 05:00 68 03/07/17 04:00 64 03/07/17 03:00 77 03/07/17 02:00 64 03/07/17 01:00 64 03/07/17 00:00 74 03/06/17 23:12 98.7 84 14 146/72 97 03/06/17 23:00 70 03/06/17 22:35 96 03/06/17 22:00 74 03/06/17 21:00 80 03/06/17 20:02 98.8 82 14 153/75 96 03/06/17 20:00 74 03/06/17 19:00 70 03/06/17 18:00 73 03/06/17 17:00 87 03/06/17 16:00 85 03/06/17 15:21 98.3 76 16 138/62 100 03/06/17 15:00 76 03/06/17 14:00 84 03/06/17 13:00 83 03/06/17 12:00 80 03/06/17 11:18 98.0 76 16 124/68 100 03/06/17 11:00 77 03/06/17 10:00 79 Labs: Laboratory Tests Test 03/07/17 03/07/17 03:47 06:27 White Blood Count 10.2 TH/MM3 (4.0-11.0) Red Blood Count 2.24 MIL/MM3 (4.00-5.30) Hemoglobin 6.5 GM/DL (11.6-15.3) Hematocrit 20.1 % (35.0-46.0) Mean Corpuscular Volume 89.8 FL (80.0-100.0) Mean Corpuscular Hemoglobin 29.0 PG (27.0-34.0) Mean Corpuscular Hemoglobin 32.3 % Concent (32.0-36.0) Red Cell Distribution Width 14.0 % (11.6-17.2) Platelet Count 207 TH/MM3 (150-450) Mean Platelet Volume 7.3 FL (7.0-11.0) Sodium Level 135 MEQ/L (136-145) Potassium Level 4.7 MEQ/L (3.5-5.1) Chloride Level 101 MEQ/L (98-107) Carbon Dioxide Level 28.1 MEQ/L (21.0-32.0) Anion Gap 6 MEQ/L (5-15) Blood Urea Nitrogen 45 MG/DL (7-18) Creatinine 2.06 MG/DL (0.50-1.00) Estimat Glomerular Filtration 28 ML/MIN (>89) Rate Random Glucose 117 MG/DL (74-106) Calcium Level 8.1 MG/DL (8.5-10.1) Blood Type B POSITIVE Antibody Screen NEGATIVE Crossmatch Leukocyte-Reduced Red Blood Cells Blood Bank Comment Result Diagram: 03/07/17 0347 03/07/17 0347 Imaging: Last 24 hours Impressions Chest X-Ray 03/07/17 0600 Signed Impressions: Service Date/Time: Tuesday, March 07, 2017 04:35 - CONCLUSION: 1. No evidence of pneumothorax. 2. Mild bibasilar atelectasis. Kirk Baker MD Cardiovascular: RRR Telemetry: NSR Pulmonary: CTA GI/: NABS, NT Incision: dry and intact Plan: Transfuse 2 units pRBC Diurese Ambulate, up to chair Stim BM Discharge planning (1) S/P CABG x 3 (2) CAD in [place] artery (3) Carotid artery disease Ramona Oneill MD March 07, 2017 09:26
[2017-03-07] MEDS: SENNOSIDES 8.6 MG TAB PO SCH (21:00)
[2017-03-07] MEDS: DONEPEZIL HCL 5 MG TAB PO SCH (21:05)
[2017-03-08] VITALS (17 sets, daily range): BP systolic 127–159; BP diastolic 68–86; PULSE 59–99; RESP 18; TEMP 97.5–98.6; O2SAT 97–99
[2017-03-08] MEDS: PANTOPRAZOLE SOD 40 MG DELAYED RELEASE TAB PO SCH (05:58)
[2017-03-08] MEDS: LEVOTHYROXINE SODIUM 50 MCG TAB PO SCH (05:58)
[2017-03-08] MEDS: INSULIN ASPART SUPPLEMENTAL SCALE SQ SCH ×2 (06:02→11:00)
[2017-03-08] MEDS: GLIMEPIRIDE 2 MG TAB PO SCH (09:00)
[2017-03-08] MEDS: ASPIRIN 81 MG CHEW TAB PO SCH (09:00)
[2017-03-08] MEDS: POLYETHYLENE GLYCOL 17 GM PKG PO SCH (09:00)
[2017-03-08] MEDS: HYDROCHLOROTHIAZIDE 25 MG TAB PO SCH (09:03)
[2017-03-08] MEDS: MAGNESIUM HYDROXIDE SUSP 30 ML CUP PO SCH (09:03)
[2017-03-08] MEDS: DOCUSATE SODIUM 100 MG CAP PO SCH (09:03)
[2017-03-08] MEDS: ATORVASTATIN 40 MG TAB PO SCH (09:03)
[2017-03-08] MEDS: AMIODARONE 200 MG TAB PO SCH (09:03)
[2017-03-08] MEDS: MULTIVITAMIN INJ 10 ML, THIAMINE INJ 500 MG, FOLIC ACID INJ 1 MG in SODIUM CHLORID 0.9%... IV SCH (09:04)
[2017-03-08] MEDS: CLOPIDOGREL 75 MG TAB PO SCH (09:04)
[2017-03-08] MEDS: METOPROLOL TARTRATE 25 MG TAB PO SCH (09:04)
[2017-03-08] MEDS: ACETAMINOPHEN/HYDROcodone 325 MG/5 MG TAB PO PRN (09:11)
[2017-03-08 10:29] LABS: HEMATOCRIT 31.2 % (35.0-46.0); MEAN CELL VOLUME 85.1 FL (80.0-100.0); MEAN CORPUSCULAR HEMOGLOBIN 28.6 PG (27.0-34.0); MEAN CORPUSCULAR HGB CONC 33.6 % (32.0-36.0); PLATELET COUNT 292 TH/MM3 (150-450); RED BLOOD COUNT 3.67 MIL/MM3 (4.00-5.30); RED CELL DISTRIBUTION WIDTH 15.1 % (11.6-17.2); REVIEW FLAG FINAL; WHITE BLOOD COUNT 8.5 TH/MM3 (4.0-11.0)
[2017-03-08 10:57] LABS: POTASSIUM 4.5 MEQ/L (3.5-5.1)
[2017-03-08] MEDS ORDERED: METO25TA3 PO (14:42)
[2017-03-08] MEDS ORDERED: PLAV75TA29 PO (14:42)
[2017-03-08] MEDS ORDERED: Aspirin Chew PO (14:42)
[2017-03-08] MEDS ORDERED: DOCU1CAP39 PO (14:42)
[2017-03-08] MEDS ORDERED: AMIO200T PO (14:42)
--- NOTE | 2017-03-08 14:55 | HHI.FF ---
Face to Face Verification Diagnosis: (1) Multi-vessel coronary artery stenosis (2) Carotid artery disease (3) CAD in [place] artery (4) S/P CABG x 3 (5) Blood loss anemia (6) Diabetes mellitus Physical Therapy Order: Evaluate and Treat Home Health Nursing Order: Signs/symptoms of disease process Wound care and dressing changes Nursing assessment with vital signs Instructions: Heart and Vascular Surgery patients *Special attention to sternal dressing Mandatory frequency Assess and evaluation, 4 days in a row The next week 3X week 2 times a week for 4 weeks 1 time a week for 5 weeks Schedule Heart and Vascular patients for full 60 day certification period Initial visit Review Open Heart Surgery Discharge Instructions (Sternal precautions, Activity, Elastic hose, Incision care, Driving, Incentive spirometry, Smoking, [place], Work and other) Need Betadine to paint incision Medication reconciliation Importance of follow up care/ check on appointments Make calendar record temperature daily When to call [facility] nurse, review instructions, phone list Incentive Spirometry, demonstration Visit 1- Begin discharge instruction for patient family and/ or caregiver using teach back method- Signs and symptoms of infection Disease characteristics Medicines and side effects Foods and nutrition/ appetite Infection control/ hand washing/ hygiene Visit 2- Continue teaching Discharge instructions- include additional information on smoking cessation , sternal dressing (sternal vac) Visit 3- Continue teaching- Cough and deep breathing, incision monitoring. Choose my plate Visit 4- Continue teaching- Discuss limitations Discuss how they are feeling Discuss progress toward goals Remaining visits- continue teaching and monitoring For any questions please call : Incentive spirometry Q1 hr x 10, while awake, also use acapella device hourly whole awake Sternal Breast Bone Precautions: NO pushing or pulling, ( pt must use sternal pillow to support chest with all activities and with coughing ( takes up to 3 months breast bone to heal ) All females to wear sternal bra , launder as needed Daily incision care: ok to shower daily, no tub bath. Wash all incisions with liquid dial soap, clean wash cloth to each site, rinse and pat dry. Observe for any signs of infection, such as drainage which is dark yellow, [place], green or foul smelling. Immediately report to the surgeon any drainage from the chest incision, or legs, and for any abnormal drainage from the chest tube sites. Notify surgeon if any temp >101.5 degrees F. When specialty dressing removed/ or if you do not have one, continue to shower daily as above, then rinse and pat incision dry and paint with betadine daily x 5 days. Allow steri strips to fall off if you have any. Avoid lotions, creams, salves, oils, etc. for the first month F/U appointment: as per [place] instructions: PCP in 2 weeks, CV surgeon 2 weeks, Pipe Inspector 3-4 weeks For any questions regarding incisions/ dressing / meds / post op care or above Symptoms, Wednesday 8am-5pm Heart & Vascular Surgery Office ( Dr. Simon & Dr. Oneill), After Hours / Nights (5pm -8am) Weekends and Holidays Please call [facility] [address] Cardiac Intermediate Care Unit (CIC) Charge Nurse I have seen patient Marcie Brito on 03/08/17. My clinical findings support the need for the requested home health care services because: Deconditioned w/ increased weakness I certify that my clinical findings support that this patient is homebound because: Post-op weakness Impaired cognitive ability/safety Griselda Ledesma March 08, 2017 14:55
--- NOTE | 2017-03-08 15:05 | HHI.DS ---
Discharge Summary Admission Date March 03, 2017 at 05:07 Discharge Date: March 08, 2017 Admitting Diagnosis abnormal cardiac stress test, multi vessel cardiac disease (1) Carotid artery disease Diagnosis: Principal (2) CAD in [place] artery Diagnosis: Principal (3) Blood loss anemia Diagnosis: Secondary (4) Diabetes mellitus Diagnosis: Principal (5) Multi-vessel coronary artery stenosis Diagnosis: Principal (6) S/P CABG x 3 Diagnosis: Secondary Procedures 1. Clampless Off-pump Coronary Artery Bypass Grafting x 3 with left internal mammary artery (ROJAS) left anterior descending (LAD), reverse saphenous vein graft to the RCA, reverse sequential saphenous vein graft to the ramus marginalis 2. Left Leg Endoscopic Vein [place] 3. Intraoperative Vein Mapping. 03/03/17 Brief History 82 female recently being evaluated for cataract surgery , underwent stress test which was abnormal , underwent cardia cath revealing multivessel coronary disease with totally occluded LAD and moderate left main stenosis PMH: alzheimer's dementia, CKD, DM, HLP HTN, hypothyroidism underwent elective 1. Clampless Off-pump Coronary Artery Bypass Grafting x 3 with left internal mammary artery (ROJAS) left anterior descending (LAD), reverse saphenous vein graft to the RCA, reverse sequential saphenous vein graft to the ramus marginalis 2. Left Leg Endoscopic Vein [place] 3. Intraoperative Vein Mapping. CBC/BMP: 03/08/17 0940 03/08/17 0940 Significant Findings Laboratory Tests Test 03/07/17 03/08/17 03:47 09:40 Red Blood Count 2.24 MIL/MM3 3.67 MIL/MM3 (4.00-5.30) (4.00-5.30) Hemoglobin 6.5 GM/DL 10.5 GM/DL (11.6-15.3) (11.6-15.3) Hematocrit 20.1 % 31.2 % (35.0-46.0) (35.0-46.0) Sodium Level 135 MEQ/L 134 MEQ/L (136-145) (136-145) Blood Urea Nitrogen 45 MG/DL (7-18) 43 MG/DL (7-18) Creatinine 2.06 MG/DL 2.09 MG/DL (0.50-1.00) (0.50-1.00) Estimat Glomerular Filtration 28 ML/MIN (>89) 27 ML/MIN (>89) Rate Random Glucose 117 MG/DL 115 MG/DL (74-106) (74-106) Calcium Level 8.1 MG/DL (8.5-10.1) Chloride Level 97 MEQ/L (98-107) Imaging Last Impressions Chest X-Ray 03/07/17 0600 Signed Impressions: Service Date/Time: Tuesday, March 07, 2017 04:35 - CONCLUSION: 1. No evidence of pneumothorax. 2. Mild bibasilar atelectasis. Kirk Baker MD PE at Discharge GENERAL: mild intermittent confusion / forgetfulness SKIN: Warm and dry./ sternal incision intact and well approximated HEAD: Normocephalic. EYES: No scleral icterus. No injection or drainage. NECK: Supple, trachea midline. No JVD or lymphadenopathy. CARDIOVASCULAR: Regular rate and rhythm without murmurs, gallops, or rubs. RESPIRATORY: Breath sounds equal bilaterally. No accessory muscle use. GASTROINTESTINAL: Abdomen soft, non-tender, nondistended. MUSCULOSKELETAL: No cyanosis, or edema. BACK: Nontender without obvious deformity. No CVA tenderness. Hospital Course 03/03 SURGICAL PROCEDURE 1. Clampless Off-pump Coronary Artery Bypass Grafting x 3 with left internal mammary artery (ROJAS) left anterior descending (LAD), reverse saphenous vein graft to the RCA, reverse sequential saphenous vein graft to the ramus marginalis 2. Left Leg Endoscopic Vein [place] 3. Intraoperative Vein Mapping. 03/04 Doing well Extubated and tolerating Transfer Telemetry Maintain CT Beta hal 03/05 Confused this am D/C CT Discharge planning 03/06/17 Lethargic, confused. Does not appear to be having pain 03/07/17 Found to be anemic with Hgb at 6.5 Plan to transfuse 2 units PRBC and diurese More alert, no complaints 03/08 repeat H&H now 10.5 VSS, stable for dc home today with family and HHC on room air Pt Condition on Discharge: Good Discharge Disposition: Disch w/ Home Health Serv Discharge Instructions DIET: Follow Instructions for: Heart Healthy Diet Activities you can perform: Full Weight Bearing, Shower Only-No Bath Activities to avoid: Strenuous Activity, Driving Additional Activity Instructio: no lifting > 8 lbs or gallon of milk Follow up Referrals: Appointment for Follow Up with Danielle Duffy Appointment for Follow Up with Lurdes Simon MD Cardiology with Diaz Lezama DO New Medications: Amiodarone (Amiodarone) 200 Mg Tab 200 MG PO Q12HR heart rhythm #28 Ref 0 TAB Clopidogrel (Plavix) 75 Mg Tab 75 MG PO DAILY Blood Clot Prevention #30 Ref 2 TAB Docusate Sodium (Dok) 100 Mg Cap 100 MG PO BID Constipation #60 Ref 0 CAP Metoprolol Tartrate (Metoprolol Tartrate) 25 Mg Tab 25 MG PO BID Blood Pressure Management #60 TAB ([Aspirin Chew]) 81 MG CHEW 81 MG PO DAILY #100 Ref 2 TAB.CHEW Continued Medications: Atorvastatin (Atorvastatin) 20 Mg Tab 20 MG PO HS Cholesterol Management #30 Ref 0 TAB Donepezil (Donepezil) 10 Mg Tab 10 MG PO HS Dementia #30 Ref 0 TAB Glimepiride (Glimepiride) 2 Mg Tab 2 MG PO DAILY Take with breakfast or first main meal Blood Sugar Management #30 Ref 0 TAB Hydrochlorothiazide (Hydrochlorothiazide) 25 Mg Tab 25 MG PO DAILY #30 Ref 0 TAB Levothyroxine (Levothyroxine) 50 Mcg Tab 50 MCG PO DAILY Thyroid #30 Ref 0 TAB Discontinued Medications: Losartan (Losartan) 100 Mg Tab 100 MG PO DAILY Blood Pressure Management #30 Ref 0 TAB Griselda Ledesma March 08, 2017 15:05
[2017-03-08] MEDS ORDERED: MISC-163 (15:48)
--- NOTE | 2017-03-09 14:20 | PQ ---
Physician Query Response Document PATIENT: ANAND RICHARDSON : 1935 ADMIT DATE: 03/03/2017 5:07 AM DISCH DATE: 03/08/2017 4:16 PM RESPONDING PROVIDER #: [email or web address] QUERY TEXT: Anemia Type BLOOD LOSS Anemia is documented in the Medical Record. Please specify the cause (includes suspected or probable cause) Such as: -- Due to ACUTE blood loss -- Due to CHRONIC blood loss -- Due to iron deficiency -- Due to chronic disease -- Other, please specify PLEASE CALL [facility] [id number] FOR ASSISTANCE The patient's Clinical Indicators include: Discharge Summary: (3) Blood loss anemia Diagnosis: Secondary 03/04/17 HGB=8.4 03/07/17 HGB=6.5 TRANSFUSED 1 UNIT PRBCs Query created by: Jennifer Amaya on 03/08/2017 3:29 PM RESPONSE TEXT: Acute blood loss with baseline anemia and operative hemodilution Electronically signed by: Lurdes Simon MD 03/09/2017 2:17 PM
== END 2017-03-08 16:16 | disposition home health service (06) | DRG 236 ==
LOC: HSDI 03-03 05:07 → HCVR 03-03 12:06 → HCIN 03-04 18:00
PROVIDERS: ADMIT Thoracic Surgery (Cardiothoracic Vascular Surgery); ATTEND Thoracic Surgery (Cardiothoracic Vascular Surgery)
PROC: 06BQ4ZZ Excision of Left Saphenous Vein, Percutaneous Endoscopic Approach (ICD-10-PCS; 2017-03-03)
PROC: 02100Z9 Bypass Coronary Artery, One Artery from Left Internal Mammary, Open Approach (ICD-10-PCS; principal; 2017-03-03 07:09)
PROC: 021109W Bypass Coronary Artery, Two Arteries from Aorta with Autologous Venous Tissue, Open Approach (ICD-10-PCS; 2017-03-03 07:09)
PROC: 30233N1 Transfusion of Nonautologous Red Blood Cells into Peripheral Vein, Percutaneous Approach (ICD-10-PCS; 2017-03-07)
DX: I25.10 Atherosclerotic heart disease of native coronary artery without angina pectoris (principal); E11.22 Type 2 diabetes mellitus with diabetic chronic kidney disease; G30.9 Alzheimer's disease, unspecified; F02.80 Dementia in other diseases classified elsewhere, unspecified severity, without behavioral disturbance, psychotic disturbance, mood disturbance, and anxiety; D62 Acute posthemorrhagic anemia; I12.9 Hypertensive chronic kidney disease with stage 1 through stage 4 chronic kidney disease, or unspecified chronic kidney disease; N18.9 Chronic kidney disease, unspecified; E78.5 Hyperlipidemia, unspecified; E03.9 Hypothyroidism, unspecified; I65.29 Occlusion and stenosis of unspecified carotid artery
CPT/HCPCS: 36430; 71010; 76937; 80048; 82948; 83735; 85014; 85025; 85027; 86850; 86900; 86901; 86920; 93005; 93318; 94003; 94640; 94664; 94667; 94668; C1768; C9248; J0131; J0171; J0690; J1630; J1644; J1815; J1940; J2250; J2270; J2405; J2720; J3010; J3370; J3411; J3475; J3480; J7030; J7040; J7050; J7120; P9016

== ENCOUNTER 2017-04-17 13:07 | Observation (INO) | payer MEDICARE, OTHER ==
[~2017-04-17 13:07] MED LIST changes: +AMIO200T PO; -ARIC10TA PO; +Aspirin Chew PO; +DOCU1CAP39 PO; +DONE10TA7 PO; +LEVO50TA4 PO; -LOSA50TA PO; +METO25TA3 PO; +MISC-163; +PLAV75TA29 PO
[2017-04-17 13:10] VITALS: BP 185/81; PULSE 81; RESP 17; TEMP 97.9; O2SAT 99
--- NOTE | 2017-04-17 13:45 | PD ---
HPI Chief Complaint: Chest Pain Time Seen by Provider: 13:21 Travel History International Travel<30 days: No Contact w/Intl Traveler<30days: No History of Present Illness HPI 82yo F with PMH of dementia and CAD s/p CABG 03/03/17, dementia here with c/o left sided chest pain this morning. Pain is sharp. Not associated with nausea , sob, diaphoresis, vomiting, abdominal pain, focal weakness or numbness. Pt followed up with Dr. Lezama earlier this month. PFSH Past Medical History Cancer: No Cardiovascular Problems: Yes Diabetes: Yes Endocrine: No Glaucoma: Yes Genitourinary: No Hepatitis: No Hiatal Hernia: No Hypertension: Yes Immune Disorder: No Musculoskeletal: No Neurologic: No Psychiatric: No Reproductive: No Respiratory: No Thyroid Disease: Yes Past Surgical History Abdominal Surgery: No AICD: No Cardiac Surgery: No Ear Surgery: No Endocrine Surgery: No Eye Surgery: Yes (CATARACTS) Genitourinary Surgery: No Gynecologic Surgery: No Joint Replacement: No Oral Surgery: No Pacemaker: No Thoracic Surgery: No Social History Tobacco Use: No Substance Use: No Allergies-Medications (Allergen,Severity, Reaction): Coded Allergies: No Known Allergies (Unverified , 04/17/17) Reported Meds & Prescriptions Reported Meds & Active Scripts Active Metoprolol Tartrate 25 Mg Tab 25 Mg PO BID Dok (Docusate Sodium) 100 Mg Cap 100 Mg PO BID Plavix (Clopidogrel Bisulfate) 75 Mg Tab 75 Mg PO DAILY Reported Remeron (Mirtazapine) 15 Mg Tab 15 Mg PO HS Losartan (Losartan Potassium) 100 Mg Tab 100 Mg PO DAILY Aspirin Adult Low Strength (Aspirin) 81 Mg Tabdr 81 Mg PO DAILY Levothyroxine (Levothyroxine Sodium) 50 Mcg Tab 50 Mcg PO DAILY Hydrochlorothiazide 25 Mg Tab 25 Mg PO DAILY Glimepiride 2 Mg Tab 2 Mg PO DAILY Take with breakfast or first main meal Atorvastatin (Atorvastatin Calcium) 20 Mg Tab 20 Mg PO HS Review of Systems Except as stated in HPI: all other systems reviewed are Neg Physical Exam Narrative GENERAL: 82yo F not in distress. SKIN: Focused skin assessment warm/dry. HEAD: Atraumatic. Normocephalic. EYES: Pupils equal and round. No scleral icterus. No injection or drainage. ENT: No nasal bleeding or discharge. Mucous membranes pink and moist. NECK: Trachea midline. No JVD. CARDIOVASCULAR: Regular rate and rhythm. No murmur appreciated. CHEST WALL: +TTP left chest. No rash. +Midline surgical scar. No erythema or discharge. Steri strips in place. RESPIRATORY: No accessory muscle use. Clear to auscultation. Breath sounds equal bilaterally. GASTROINTESTINAL: Abdomen soft, non-tender, nondistended. MUSCULOSKELETAL: No obvious deformities. No clubbing. No cyanosis. No edema. NEUROLOGICAL: Awake and alert. No obvious cranial nerve deficits. Motor grossly within normal limits. Normal speech. AAOx2. Data Data Last Documented VS Vital Signs Date Time Temp Pulse Resp B/P Pulse Ox O2 Delivery O2 Flow Rate FiO2 04/17/17 13:48 98 Room Air 04/17/17 13:10 97.9 81 17 185/81 Orders Electrocardiogram (04/17/17 13:29) Basic Metabolic Panel (Bmp) (04/17/17 13:29) Ckmb (Isoenzyme) Profile (04/17/17 13:29) Complete Blood Count With Diff (04/17/17 13:29) Magnesium (Mg) (04/17/17 13:29) Prothrombin Time / Inr (Pt) (04/17/17 13:29) Act Partial Throm Time (Ptt) (04/17/17 13:29) Troponin I (04/17/17 13:29) Chest, Single Ap (04/17/17 13:29) Ecg Monitoring (04/17/17 13:29) Bilateral Bp Monitoring (04/17/17 13:29) Iv Access Insert/Monitor (04/17/17 13:29) Oximetry (04/17/17 13:29) Oxygen Administration (04/17/17 13:29) Admit Order (Ed Use Only) (04/17/17 15:39) Labs Laboratory Tests Test 04/17/17 13:46 White Blood Count 5.8 TH/MM3 Red Blood Count 3.72 MIL/MM3 Hemoglobin 10.9 GM/DL Hematocrit 32.5 % Mean Corpuscular Volume 87.5 FL Mean Corpuscular Hemoglobin 29.2 PG Mean Corpuscular Hemoglobin 33.4 % Concent Red Cell Distribution Width 14.8 % Platelet Count 323 TH/MM3 Mean Platelet Volume 7.6 FL Neutrophils (%) (Auto) 77.6 % Lymphocytes (%) (Auto) 14.1 % Monocytes (%) (Auto) 5.3 % Eosinophils (%) (Auto) 2.4 % Basophils (%) (Auto) 0.6 % Neutrophils # (Auto) 4.5 TH/MM3 Lymphocytes # (Auto) 0.8 TH/MM3 Monocytes # (Auto) 0.3 TH/MM3 Eosinophils # (Auto) 0.1 TH/MM3 Basophils # (Auto) 0.0 TH/MM3 CBC Comment DIFF FINAL Differential Comment Prothrombin Time 11.0 SEC Prothromb Time International 1.0 RATIO Ratio Activated Partial 22.5 SEC Thromboplast Time Sodium Level 140 MEQ/L Potassium Level 4.2 MEQ/L Chloride Level 104 MEQ/L Carbon Dioxide Level 31.1 MEQ/L Anion Gap 5 MEQ/L Blood Urea Nitrogen 35 MG/DL Creatinine 2.14 MG/DL Estimat Glomerular Filtration 27 ML/MIN Rate Random Glucose 197 MG/DL Calcium Level 9.3 MG/DL Magnesium Level 2.0 MG/DL Total Creatine Kinase 30 U/L Troponin I LESS THAN 0.02 NG/ML MDM Medical Decision Making Medical Screen Exam Complete: Yes Emergency Medical Condition: Yes Interpretation(s) EKG: NSR 73bpm. LAD. LBBB unchanged from 02/2017. Last Impressions Chest X-Ray 04/17/17 1329 Signed Impressions: Service Date/Time: Wednesday, April 17, 2017 13:44 - CONCLUSION: Suspected mild left pleural effusion. Aram Olivas MD Laboratory Tests Test 04/17/17 13:46 White Blood Count 5.8 TH/MM3 (4.0-11.0) Red Blood Count 3.72 MIL/MM3 (4.00-5.30) Hemoglobin 10.9 GM/DL (11.6-15.3) Hematocrit 32.5 % (35.0-46.0) Mean Corpuscular Volume 87.5 FL (80.0-100.0) Mean Corpuscular Hemoglobin 29.2 PG (27.0-34.0) Mean Corpuscular Hemoglobin 33.4 % Concent (32.0-36.0) Red Cell Distribution Width 14.8 % (11.6-17.2) Platelet Count 323 TH/MM3 (150-450) Mean Platelet Volume 7.6 FL (7.0-11.0) Neutrophils (%) (Auto) 77.6 % (16.0-70.0) Lymphocytes (%) (Auto) 14.1 % (9.0-44.0) Monocytes (%) (Auto) 5.3 % (0.0-8.0) Eosinophils (%) (Auto) 2.4 % (0.0-4.0) Basophils (%) (Auto) 0.6 % (0.0-2.0) Neutrophils # (Auto) 4.5 TH/MM3 (1.8-7.7) Lymphocytes # (Auto) 0.8 TH/MM3 (1.0-4.8) Monocytes # (Auto) 0.3 TH/MM3 (0-0.9) Eosinophils # (Auto) 0.1 TH/MM3 (0-0.4) Basophils # (Auto) 0.0 TH/MM3 (0-0.2) CBC Comment DIFF FINAL Differential Comment Prothrombin Time 11.0 SEC (9.8-11.6) Prothromb Time International 1.0 RATIO Ratio Activated Partial 22.5 SEC Thromboplast Time (24.3-30.1) Sodium Level 140 MEQ/L (136-145) Potassium Level 4.2 MEQ/L (3.5-5.1) Chloride Level 104 MEQ/L (98-107) Carbon Dioxide Level 31.1 MEQ/L (21.0-32.0) Anion Gap 5 MEQ/L (5-15) Blood Urea Nitrogen 35 MG/DL (7-18) Creatinine 2.14 MG/DL (0.50-1.00) Estimat Glomerular Filtration 27 ML/MIN (>89) Rate Random Glucose 197 MG/DL (74-106) Calcium Level 9.3 MG/DL (8.5-10.1) Magnesium Level 2.0 MG/DL (1.5-2.5) Total Creatine Kinase 30 U/L (26-192) Troponin I LESS THAN 0.02 NG/ML (0.02-0.05) Differential Diagnosis ACS vs. musculoskeletal pain vs. costochondritis vs. pneumonia Narrative Course 82yo F with very atypical chest pain. Labs reviewed, no leukocytosis. H/H low at 10.9/32.5 but this is her baseline. Troponin negative. Creatinine elevated at 2.14 but this is also her baseline. CXR showed suspected mild left pleural effusion. Pt took her aspirin today. Pt is currently chest pain free. Initially admitted to chest pain center but Dr. Rosario did not accept pt since he had a recent CABG. Discussed with Dr. Paige and accepted to his service for serial EKG and cardiac enzymes. Diagnosis Primary Impression: Chest pain Qualified Code: R07.9 - Chest pain, unspecified type Admitting Information Admitting Physician Requests: Naomie Ordaz DO Apr 17, 2017 13:45
[2017-04-17 13:48] VITALS: O2SAT 98
--- NOTE | 2017-04-17 13:53 | RADRPT ---
EXAM DATE/TIME: 04/17/2017 13:44 [facility] COMPARISON: CHEST SINGLE AP, March 04, 2017, 4:20. CHEST SINGLE AP, March 07, 2017, 4:35. INDICATIONS : Chest pain. MEDICAL HISTORY : Hypertension. Diabetes mellitus type II. SURGICAL HISTORY : CABG. ENCOUNTER: Initial ACUITY: 1 day PAIN SCORE: 8/10 LOCATION: Bilateral chest FINDINGS: The patient is status post sternotomy. The heart size is normal. There is elevation of the left hemid iaphragm. There is a suspected mild left effusion. The lungs are otherwise clear. CONCLUSION: Suspected mild left pleural effusion. Aram Olivas MD on April 17, 2017 at 13:47 Board Certified Radiologist. This report was verified electronically.
[2017-04-17 14:10] LABS: AUTOMATED NEUTROPHIL # 4.5 TH/MM3 (1.8-7.7); BASOPHIL % 0.6 % (0.0-2.0); EOSINOPHIL # 0.1 TH/MM3 (0-0.4); EOSINOPHIL % 2.4 % (0.0-4.0); HEMATOCRIT 32.5 % (35.0-46.0); HEMO FLAGS DIFF FINAL; LYMPH % 14.1 % (9.0-44.0); LYMPHOCYTE # 0.8 TH/MM3 (1.0-4.8); MEAN CELL VOLUME 87.5 FL (80.0-100.0); MEAN CORPUSCULAR HEMOGLOBIN 29.2 PG (27.0-34.0); MEAN CORPUSCULAR HGB CONC 33.4 % (32.0-36.0); MONO % 5.3 % (0.0-8.0); NEUT % 77.6 % (16.0-70.0); PLATELET COUNT 323 TH/MM3 (150-450); RED BLOOD COUNT 3.72 MIL/MM3 (4.00-5.30); RED CELL DISTRIBUTION WIDTH 14.8 % (11.6-17.2); WHITE BLOOD COUNT 5.8 TH/MM3 (4.0-11.0)
[2017-04-17 14:20] LABS: APTT (PATIENT) 22.5 SEC (24.3-30.1)
[2017-04-17 14:36] LABS: ANION GAP 5 MEQ/L (5-15); BICARBONATE 31.1 MEQ/L (21.0-32.0); BLOOD UREA NITROGEN 35 MG/DL (7-18); CHLORIDE 104 MEQ/L (98-107); GLOMERULAR FILTRATION RATE 27 ML/MIN (>89); POTASSIUM 4.2 MEQ/L (3.5-5.1); SODIUM (NA) 140 MEQ/L (136-145)
[2017-04-17 14:49] LABS: CREATINE KINASE 30 U/L (26-192)
[2017-04-17] MEDS ORDERED: ASPI1TAB91 PO (15:28)
[2017-04-17] MEDS ORDERED: LOSA100T PO (15:42)
[2017-04-17] MEDS ORDERED: REME15TA PO (16:23)
[2017-04-17] MEDS ORDERED: DEXTROSE 50% IN WATER 50 ML VIAL(D50) IV PRN (16:30)
[2017-04-17] MEDS ORDERED: GLUCAGON 1 MG/ML VIAL OTHER PRN (16:30)
--- NOTE | 2017-04-17 16:48 | HHI.HP ---
[facility] Marcellus Amanda DO Admission Diagnosis Chest pain Diagnoses: (1) Chest pain Diagnosis: Principal Chief Complaint: chest pain Travel History International Travel<30 Days: No Contact w/Intl Traveler <30 Da: No Traveled to Known Affected Are: No History of Present Illness patient is a 82 y/o female with history of CAD- s/p recent CABG ( last month) presented to ER with chest pain. she says that the pain started this morning. pain was somewhat midsternal and moderate in intensity. pain was not associated with nausea/emesis, diaphoresis or sob. pain was localized with no radiation. her daughter says that she's had on and off mild chest pain since CABG but it was never ' as bad '. she was almost pain free at the time of my evaluation. Review of Systems Constitutional: DENIES: Fever, Weight loss, Chills, Night Sweats Eyes: DENIES: Blurred vision, Diplopia, Vision loss, Double Vision Ears, nose, mouth, throat: DENIES: Tinnitus, Vertigo, Throat pain, Epistaxis Respiratory: DENIES: Apneas, Cough, Snoring, Wheezing, Hemoptysis, Sputum production, Shortness of breath Cardiovascular: COMPLAINS OF: Chest pain, DENIES: Palpitations, Syncope, Dyspnea on Exertion, PND, Lower Extremity Edema, Orthopnea, Claudication Gastrointestinal: DENIES: Abdominal pain, Black stools, Bloody stools, Constipation, Diarrhea, Nausea, Vomiting, Difficulty Swallowing, Anorexia Genitourinary: DENIES: Urinary frequency, Urgency, Hematuria, Dysuria Musculoskeletal: DENIES: Joint pain, Muscle aches, Stiffness, Joint Swelling Integumentary: DENIES: Rash Neurologic: DENIES: Abnormal gait, Headache, Localized weakness, Paresthesias, Seizures, Speech Problems, Tremor, Poor Balance Psychiatric: DENIES: Anxiety, Confusion, Mood changes, Depression, Hallucinations, Agitation, Suicidal Ideation, Homicidal Ideation, Delusions Past Family Social History Past Medical History CAD hypertension chronic renal insufficiency hypothyroidism diabetes mellitus Past Surgical History CABG Reported Medications Metoprolol Tartrate 25 Mg Tab 25 Mg PO BID Dok (Docusate Sodium) 100 Mg Cap 100 Mg PO BID Plavix (Clopidogrel Bisulfate) 75 Mg Tab 75 Mg PO DAILY Amiodarone (Amiodarone HCl) 200 Mg Tab 200 Mg PO Q12HR Aspirin Adult Low Strength (Aspirin) 81 Mg Tabdr 81 Mg PO DAILY Levothyroxine (Levothyroxine Sodium) 50 Mcg Tab 50 Mcg PO DAILY Hydrochlorothiazide 25 Mg Tab 25 Mg PO DAILY Glimepiride 2 Mg Tab 2 Mg PO DAILY Take with breakfast or first main meal Donepezil 10 Mg Tab 10 Mg PO HS Atorvastatin (Atorvastatin Calcium) 20 Mg Tab 20 Mg PO HS Allergies: Coded Allergies: No Known Allergies (Unverified , 04/17/17) Family History CAD in brother. Social History ex-smoker. Physical Exam Vital Signs Vital Signs Date Time Temp Pulse Resp B/P Pulse Ox O2 Delivery O2 Flow Rate FiO2 04/17/17 13:48 98 Room Air 04/17/17 13:46 98 Room Air 04/17/17 13:10 97.9 81 17 185/81 99 Physical Exam GENERAL: elderly female, in no apparent distress. SKIN: well-healed scar of the surgery on chest with no sign of infection HEAD: Atraumatic. Normocephalic. No temporal or scalp tenderness. EYES: Pupils equal round and reactive. Extraocular motions intact. No scleral icterus. No injection or drainage. ENT: Nose without bleeding, purulent drainage or septal hematoma. Throat without erythema, tonsillar hypertrophy or exudate. Uvula midline. Airway patent. NECK: Trachea midline. No JVD or lymphadenopathy. Supple, nontender, no meningeal signs. CARDIOVASCULAR: Regular rate and rhythm without murmurs, gallops, or rubs. RESPIRATORY: Clear to auscultation. Breath sounds equal bilaterally. No wheezes , rales, or rhonchi. GASTROINTESTINAL: Abdomen soft, non-tender, nondistended. No hepato-splenomegaly , or palpable masses. No guarding. MUSCULOSKELETAL: Extremities without clubbing, cyanosis, or edema. No joint tenderness, effusion, or edema noted. No calf tenderness. Negative Homans sign bilaterally. NEUROLOGICAL: Awake and alert. Cranial nerves II through XII intact. Motor and sensory grossly within normal limits. Five out of 5 muscle strength in all muscle groups. Normal speech. Laboratory Laboratory Tests Test 04/17/17 13:46 White Blood Count 5.8 Red Blood Count 3.72 Hemoglobin 10.9 Hematocrit 32.5 Mean Corpuscular Volume 87.5 Mean Corpuscular Hemoglobin 29.2 Mean Corpuscular Hemoglobin 33.4 Concent Red Cell Distribution Width 14.8 Platelet Count 323 Mean Platelet Volume 7.6 Neutrophils (%) (Auto) 77.6 Lymphocytes (%) (Auto) 14.1 Monocytes (%) (Auto) 5.3 Eosinophils (%) (Auto) 2.4 Basophils (%) (Auto) 0.6 Neutrophils # (Auto) 4.5 Lymphocytes # (Auto) 0.8 Monocytes # (Auto) 0.3 Eosinophils # (Auto) 0.1 Basophils # (Auto) 0.0 CBC Comment DIFF FINAL Differential Comment Prothrombin Time 11.0 Prothromb Time International 1.0 Ratio Activated Partial 22.5 Thromboplast Time Sodium Level 140 Potassium Level 4.2 Chloride Level 104 Carbon Dioxide Level 31.1 Anion Gap 5 Blood Urea Nitrogen 35 Creatinine 2.14 Estimat Glomerular Filtration 27 Rate Random Glucose 197 Calcium Level 9.3 Magnesium Level 2.0 Total Creatine Kinase 30 Troponin I LESS THAN 0.02 Result Diagram: 04/17/17 1346 04/17/17 1346 Imaging Last Impressions Chest X-Ray 04/17/17 1329 Signed Impressions: Service Date/Time: Monday, April 17, 2017 13:44 - CONCLUSION: Suspected mild left pleural effusion. Aram Olivas MD EKG; sinus rhythm with LBBB Assessment and Plan Assessment and Plan A/P - chest pain with history of CAD- s/p recent CABG ( 2016) resume aspirin, plavix, BB and statin- trend the cardiac enzymes and consult cardiology -hypertension; resume home meds- will monitor and adjust the regimen as needed -diabetes mellitus; accu-check with SSI -hypothyroidism; resume levothyroxine -chronic renal insufficiency; at her baseline- will monitor -DVT prophylaxis iwth SCD's Discussed Condition With the patient and her daughter at the bedside. Problem Qualifiers (1) Chest pain: Qualified Code: R07.9 - Chest pain, unspecified type Axel Hickey MD Apr 17, 2017 16:48
[2017-04-17] MEDS ORDERED: ONDANSETRON HCL 4 MG/2 ML VIAL IV PUSH PRN (17:00)
[2017-04-17] MEDS ORDERED: ACETAMINOPHEN 325 MG TAB PO PRN (17:00)
[2017-04-17] MEDS ORDERED: ACETAMINOPHEN/HYDROcodone 325 MG/5 MG TAB PO PRN (17:00)
[2017-04-17 17:23] VITALS: BP 139/66; PULSE 56
[2017-04-17 20:32] VITALS: BP 147/76; PULSE 60; RESP 18; TEMP 98; O2SAT 100
[2017-04-17] MEDS ORDERED: TEMAZEPAM 7.5 MG CAP PO ONE (21:00)
[2017-04-17] MEDS: METOPROLOL TARTRATE 25 MG TAB PO SCH (21:28)
[2017-04-17] MEDS: MIRTAZAPINE 15 MG TAB PO SCH (21:28)
[2017-04-17] MEDS: ATORVASTATIN 20 MG TAB PO SCH (21:28)
[2017-04-17] MEDS: INSULIN ASPART SUPPLEMENTAL SCALE SQ SCH (21:29)
[2017-04-17 23:13] VITALS: PULSE 65
[2017-04-17 23:57] VITALS: BP 151/78; PULSE 66; RESP 18; TEMP 98.2; O2SAT 97
[2017-04-18] VITALS (9 sets, daily range): BP systolic 120–154; BP diastolic 58–70; PULSE 52–74; RESP 16–18; TEMP 97.5–98.1; O2SAT 87–99
[2017-04-18] MEDS: INSULIN ASPART SUPPLEMENTAL SCALE SQ SCH ×4 (06:00→20:59)
[2017-04-18] MEDS: LEVOTHYROXINE SODIUM 50 MCG TAB PO SCH (06:04)
[2017-04-18] MEDS ORDERED: LOSARTAN 50 MG TAB PO SCH (09:00)
[2017-04-18] MEDS: ASPIRIN EC 81 MG TABEC PO SCH (10:25)
[2017-04-18] MEDS: CLOPIDOGREL 75 MG TAB PO SCH (10:25)
[2017-04-18] MEDS: METOPROLOL TARTRATE 25 MG TAB PO SCH ×2 (10:32→20:59)
--- NOTE | 2017-04-18 11:03 | HHI.PR ---
Subjective Remarks Follow up for chest pain. The patient is seen with her daughter at bedside. The patient denies any further chest pains overnight or today. She does report occasional shortness of breath but denies any currently. The daughter explains yesterday when the patient complained of chest pain, she was hold her left lower rib cage and just looked very "uncomfortable" which prompted the daughter to bring her to the ER. Discussed results of mild left pleural effusion likely etiology of patient's pain. The daughter reports the patient does not do much exercises at home and does not use her incentive spirometer, however she is going to start cardio rehab in April. Objective Vitals Vital Signs Date Time Temp Pulse Resp B/P Pulse Ox O2 Delivery O2 Flow Rate FiO2 04/18/17 08:41 97.5 55 16 154/70 98 04/18/17 04:21 97.8 74 18 150/70 98 04/17/17 23:57 98.2 66 18 151/78 97 04/17/17 23:13 65 04/17/17 20:32 98.0 60 18 147/76 100 04/17/17 17:23 56 139/66 Room Air 04/17/17 13:48 98 Room Air 04/17/17 13:46 98 Room Air 04/17/17 13:10 97.9 81 17 185/81 99 Result Diagram: 04/17/17 1346 04/17/17 1346 Imaging Last Impressions Chest X-Ray 04/17/17 1329 Signed Impressions: Service Date/Time: Monday, April 17, 2017 13:44 - CONCLUSION: Suspected mild left pleural effusion. Aram Olivas MD Objective Remarks GENERAL: Well-nourished, well-developed pleasant elderly female patient in [facility]. SKIN: Warm and dry. No rash. HEENT: Normocephalic. Atraumatic.Pupils equal and round. Mucous membranes pink and moist. NECK: Supple. Trachea midline. CARDIOVASCULAR: Regular rate and rhythm. S1, S2 noted. No murmur appreciated. Midline sternotomy scar well-healing. RESPIRATORY: No accessory muscle use. Diminished breath sounds at left base, otherwise clear to auscultation. Breath sounds equal bilaterally. GASTROINTESTINAL: Abdomen soft, non-tender, nondistended. Normoactive bowel sounds x4. MUSCULOSKELETAL: No obvious deformities. Extremities without clubbing, cyanosis , or edema. NEUROLOGICAL: Awake and alert. No obvious cranial nerve deficits. Motor grossly within normal limits. 5/5 muscle strength in bilateral upper and lower extremities. Normal speech. PSYCHIATRIC: Appropriate mood and affect; insight and judgment normal. Medications and IVs Current Medications Medications (Trade) Dose Ordered Sig/Nabeel Route Start Time Stop Time Status Last Admin (D50w (Vial) Inj) 50 ml UNSCH PRN IV 04/17/17 16:30 (Glucagon Inj) 1 mg UNSCH PRN OTHER 04/17/17 16:30 (Ecotrin Ec) 81 mg DAILY PO 04/18/17 09:00 04/18/17 10:25 (Lipitor) 20 mg HS PO 04/17/17 21:00 04/17/17 21:28 (Plavix) 75 mg DAILY PO 04/18/17 09:00 04/18/17 10:25 (Synthroid) 50 mcg DAILY@06 PO 04/18/17 06:00 04/18/17 06:04 (Cozaar) 100 mg DAILY PO 04/18/17 09:00 (Lopressor) 25 mg BID PO 04/17/17 21:00 04/18/17 10:32 (Remeron) 15 mg HS PO 04/17/17 21:00 04/17/17 21:28 ([place] 5-325 Mg) 1 tab Q6H PRN PO 04/17/17 17:00 (Tylenol) 650 mg Q4H PRN PO 04/17/17 17:00 (Zofran Inj) 4 mg Q8HR PRN IV PUSH 04/17/17 17:00 (Hydrodiuril) 25 mg DAILY PO 04/18/17 11:00 A/P Problem List: (1) Chest pain ICD Code: R07.9 Status: Acute Assessment and Plan 82-year-old female with history of diabetes, hypertension, hyperlipidemia, CAD status post CABG 03/03/17, presents with acute onset of chest pain on 04/17/17 Chest Pain: suspect secondary to pleural effusion, see below. ACS ruled out with negative serial cardiac enzymes x3 and EKG without acute ischemic changes. Continue patient's aspirin, plavix, metoprolol, statin. Consult cardiology. Left Pleural Effusion: CXR images reviewed by me, shows mild left pleural effusion, discussed results with patient and daughter at bedside. Suspect effusion post op recent CABG. Encourage incentive spirometry and ambulation. Suggested repeat CXR in 1-2 weeks. Hypertension: chronic, not well controlled. Continue patient's metoprolol and HCTZ. Patient's losartan was discontinued on previous admission. Monitor BP, may need to add additional antihypertensives. Hyperlipidemia: chronic, continue patient's statin. Diabetes Mellitus: chronic, continue patient's glimepiride. Monitor Accu-checks and cover with SSI. Patient with BG 80 this morning, monitor for hypoglycemia. Hypothyroidism: chronic, continue patient's synthroid. DVT Prophylaxis: SCDs Problem Qualifiers (1) Chest pain: Qualified Code: R07.9 - Chest pain, unspecified type Gayle Brewer PA-C Apr 18, 2017 11:03 am
--- NOTE | 2017-04-18 11:55 | EKG ---
Date Performed: 04/17/2017 Time Performed: 13:30:48 PTAGE: 82 years EKG: Sinus rhythm WITH SINUS ARRHYTHMIA LEFT BUNDLE BRANCH BLOCK Since previous tracing, no significant change noted A BNORMAL ECG PREVIOUS TRACING : 03/04/2017 05.07 DOCTOR: Artur Figueroa Interpretating Date/Time 04/18/2017 11:54:18
[2017-04-18] MEDS ORDERED: ACETAMINOPHEN 500 MG CPLT PO PRN (12:00)
[2017-04-18] MEDS ORDERED: MORPHINE SULFATE 4 MG/ML INJ IV PUSH PRN (12:00)
[2017-04-18] MEDS ORDERED: NITROGLYCERIN 0.4 MG SL 25 TABS/BTL SL PRN (12:00)
[2017-04-18] MEDS: HYDROCHLOROTHIAZIDE 25 MG TAB PO SCH (12:21)
--- NOTE | 2017-04-18 13:12 | MB ---
cc: JACINTA PETIT MD DATE OF CONSULTATION: 04/18/2017 REASON FOR CONSULTATION: Chest pain. HISTORY OF PRESENT ILLNESS The patient is a pleasant 82-year-old woman who last saw my partner Dr. Lezama for a heart catheterization following an abnormal stress test. This revealed multivessel disease and she ended up undergoing a CABG on 03/03/2017. The patient does have baseline dementia but apparently complained of some left-sided chest discomfort so she was brought to the hospital where she was ruled out for KS. She briefly complained of 10/10 chest pain a few minutes ago but now is asymptomatic. Again she has some baseline dementia and apparently looked pretty comfortable during her last bout of chest pain. She is currently asymptomatic denying further chest discomfort, shortness breath, lightheadedness, dizziness. PAST MEDICAL HISTORY 1. Coronary artery disease status post CABG last month. 2. Hypertension. 3. Coronary artery disease. 4. Chronic kidney disease. 5. Hypertension. 6. Hyperlipidemia. CURRENT MEDICATIONS: 1. Amaryl. 2. Nitrostat. 3. Aspirin 81 mg daily. 4. Hydrochlorothiazide 25 mg daily. 5. Plavix 75 mg daily. 6. Metoprolol tartrate 25 mg b.i.d. 7. Lipitor 20 mg q.h.s. ALLERGIES: NO KNOWN DRUG ALLERGIES. PHYSICAL EXAMINATION Afebrile, pulse 59, respiratory rate 16, BP 132/63 sating 99% on room air. General: Pleasant -British woman in no distress. Neck: No JVD. Lungs: Clear auscultation bilaterally. Cardiovascular: Regular rate and rhythm. No murmurs appreciated. Abdomen: Benign. Extremities: No edema. LABORATORY DATA: Cardiac enzymes negative x3. Sodium 140, potassium 4.2, chloride 104, bicarb 31.1, BUN 35, creatinine 2.14. Glucose 197, INR is 1.0. White count 5.8, hematocrit 32.5, platelet count 323. IMAGING STUDIES: Chest x-ray showed mild left pleural effusion. EKG shows sinus rhythm with left bundle-branch block. IMPRESSION Atypical chest pain. The patient's history is very difficult given her baseline dementia. It is possible she is having typical post surgical pain and not truly angina. She has ruled out for KS. I think a nuclear stress test is reasonable and will have that done. Further recommendations will be based on her clinical course. Dr. Lezama will resume care in the morning. MD CORNELIUS Zacarias/PEGGY /12:08 PM /1:08 PM
[2017-04-18 13:34] LABS: CREATINE KINASE 38 U/L (26-192)
[2017-04-18 19:35] LABS: CREATINE KINASE 29 U/L (26-192)
[2017-04-18] MEDS: ATORVASTATIN 20 MG TAB PO SCH (20:59)
[2017-04-18] MEDS: MIRTAZAPINE 15 MG TAB PO SCH (20:59)
[2017-04-19 03:23] VITALS: BP 150/67; PULSE 67; RESP 18; TEMP 98.1; O2SAT 97
[2017-04-19] MEDS: LEVOTHYROXINE SODIUM 50 MCG TAB PO SCH (05:55)
[2017-04-19] MEDS: INSULIN ASPART SUPPLEMENTAL SCALE SQ SCH (06:00)
[2017-04-19 07:00] VITALS: PULSE 62
[2017-04-19 07:15] VITALS: BP 160/74; PULSE 57; RESP 18; TEMP 98; O2SAT 99
[2017-04-19] MEDS ORDERED: GLIMEPIRIDE 2 MG TAB PO SCH (09:00)
[2017-04-19] MEDS ORDERED: REGADENOSON INJ 0.4 MG/5 ML SYR ONE (09:31)
--- NOTE | 2017-04-19 09:56 | PD.CARD.PN ---
Subjective Subjective Remarks No chest pain, no shortness of breath Pain with palpation of the anterior chest wall, patient unsure if this is the pain that brought her in as she doesn't really remember it Objective Medications Current Medications Medications (Trade) Dose Ordered Sig/Nabeel Route Start Time Stop Time Status Last Admin (D50w (Vial) Inj) 50 ml UNSCH PRN IV 04/17/17 16:30 (Glucagon Inj) 1 mg UNSCH PRN OTHER 04/17/17 16:30 (Ecotrin Ec) 81 mg DAILY PO 04/18/17 09:00 04/18/17 10:25 (Lipitor) 20 mg HS PO 04/17/17 21:00 04/18/17 20:59 (Plavix) 75 mg DAILY PO 04/18/17 09:00 04/18/17 10:25 (Synthroid) 50 mcg DAILY@06 PO 04/18/17 06:00 04/19/17 05:55 (Lopressor) 25 mg BID PO 04/17/17 21:00 04/18/17 20:59 (Remeron) 15 mg HS PO 04/17/17 21:00 04/18/17 20:59 ([place] 5-325 Mg) 1 tab Q6H PRN PO 04/17/17 17:00 (Tylenol) 650 mg Q4H PRN PO 04/17/17 17:00 (Zofran Inj) 4 mg Q8HR PRN IV PUSH 04/17/17 17:00 (Hydrodiuril) 25 mg DAILY PO 04/18/17 11:00 04/18/17 12:21 (Amaryl) 2 mg DAILY PO 04/19/17 09:00 (Nitrostat Sl) 0.4 mg Q5M PRN SL 04/18/17 12:00 04/18/17 12:09 (Tylenol) 500 mg Q4H PRN PO 04/18/17 12:00 (Morphine Inj) 2 mg Q3H PRN IV PUSH 04/18/17 12:00 Vital Signs / I&O Vital Signs Date Time Temp Pulse Resp B/P Pulse Ox O2 Delivery O2 Flow Rate FiO2 04/19/17 07:15 98.0 57 18 160/74 99 04/19/17 07:00 62 04/19/17 03:23 98.1 67 18 150/67 97 04/18/17 23:14 53 04/18/17 19:43 97.8 63 18 120/58 96 04/18/17 19:15 96 04/18/17 15:26 98.1 62 16 144/69 87 04/18/17 11:11 97.9 59 16 132/63 99 I/O 04/18/17 04/18/17 04/18/17 04/19/17 04/19/17 04/19/17 07:00 15:00 23:00 07:00 15:00 23:00 Intake Total 150 ml Balance 150 ml Intake Oral 150 ml Physical Exam GENERAL: NAD, Alert/Awake SKIN: Warm and dry. HEAD: Atraumatic. Normocephalic. EYES: Pupils equal and round. No scleral icterus. No injection or drainage. ENT: No nasal bleeding or discharge. Mucous membranes pink and moist. NECK: Trachea midline. No JVD. CARDIOVASCULAR: Regular rate and rhythm. Sternotomy clean/dry/intact RESPIRATORY: No accessory muscle use. Clear to auscultation. Breath sounds equal bilaterally. GASTROINTESTINAL: Abdomen soft, non-tender, nondistended. Hepatic and splenic margins not palpable. MUSCULOSKELETAL: Extremities without clubbing, cyanosis, or edema. No obvious deformities. NEUROLOGICAL: Awake and alert. No obvious cranial nerve deficits. Motor grossly within normal limits. Five out of 5 muscle strength in the arms and legs. Normal speech. PSYCHIATRIC: Appropriate mood and affect; insight and judgment normal. Laboratory Laboratory Tests Test 04/18/17 04/18/17 11:49 18:39 Total Creatine Kinase 38 U/L 29 U/L Troponin I LESS THAN 0.02 LESS THAN 0.02 NG/ML NG/ML Assessment and Plan Problem List: (1) Chest pain (2) S/P CABG x 3 (3) Multi-vessel coronary artery stenosis (4) Diabetes mellitus Assessment and Plan 1) Atypical/Musculoskeletal chest pain, difficult with her baseline dementia 2) For stress test today, if negative can be discharged from a cardiovascular standpoint 3) Con't with current cardiovascular medications Problem Qualifiers (1) Chest pain: Qualified Code: R07.9 - Chest pain, unspecified type Diaz Lezama DO Apr 19, 2017 09:56
[2017-04-19] MEDS: METOPROLOL TARTRATE 25 MG TAB PO SCH (10:40)
[2017-04-19] MEDS: CLOPIDOGREL 75 MG TAB PO SCH (10:41)
[2017-04-19] MEDS: ASPIRIN EC 81 MG TABEC PO SCH (10:41)
[2017-04-19] MEDS: HYDROCHLOROTHIAZIDE 25 MG TAB PO SCH (10:41)
--- NOTE | 2017-04-19 10:51 | RADRPT ---
EXAM DATE/TIME: 04/19/2017 08:53 [facility] COMPARISON: No previous studies available for comparison. INDICATIONS : Mid chest pain for one day. Coronary artery disease. Coronary artery bypass graft. DOSE: 25.5 mCi Tc99m Myoview at stress. 8.1 mCi Tc99m Myoview at rest. 0.4 mg Lexiscan STRESS SYMPTOMS: None noted. EJECTION FRACTION: 60% MEDICAL HISTORY : Hypertension. Stroke SURGICAL HISTORY : CABG Cardiac cath. ENCOUNTER: Initial ACUITY: 1 day PAIN SCALE: 1/10 LOCATION: Bilateral chest TECHNIQUE: The patient underwent pharmacologic stress with infusion of prescribed dose. Continuous ECG tracing was monitored during stress. Gated SPECT imaging was performed after stress and conventional SPECT i maging was performed at rest. The examination was performed on a SPECT/CT scanner, both attenuation and non-corrected datasets were reviewed. FINDINGS: DISTRIBUTION: The maximum perfused segment at stress is in the anterolateral wall. PERFUSION STUDY: The pattern of perfusion at stress is within normal limits. GATED STUDY: There is intact wall motion and thickening without hypokinetic or dyskinetic segments. CONCLUSION: 1. No reversible perfusion abnormality. 2. No focal wall motion abnormality with EF of 60%. RISK CATEGORY: 1- Low Risk. <1% annual mortality rate. Nuno Sanchez MD on April 19, 2017 at 10:45 Board Certified Radiologist. This report was verified electronically.
--- NOTE | 2017-04-19 11:22 | HHI.PR ---
Subjective Remarks Follow-up for chest wall pain. Patient seen with daughter at bedside. The patient is seen after stress test today. Discussed with cardiology, Dr. Do earlier, chest pain seems more musculoskeletal. The patient denies any further chest pain or shortness breath. She denies any cough. The patient did have recent CABG. The patient and family have no other acute concerns at this time. The patient's daughter does state that the patient was complaining of back pain prior to admission and she plans to follow-up with the patient's PCP for this soon. Objective Vitals Vital Signs Date Time Temp Pulse Resp B/P Pulse Ox O2 Delivery O2 Flow Rate FiO2 04/19/17 07:15 98.0 57 18 160/74 99 04/19/17 07:00 62 04/19/17 03:23 98.1 67 18 150/67 97 04/18/17 23:14 53 04/18/17 19:43 97.8 63 18 120/58 96 04/18/17 19:15 96 04/18/17 15:26 98.1 62 16 144/69 87 I/O 04/18/17 04/18/17 04/18/17 04/19/17 04/19/17 04/19/17 07:00 15:00 23:00 07:00 15:00 23:00 Intake Total 150 ml Balance 150 ml Intake Oral 150 ml Result Diagram: 04/17/17 1346 04/17/17 1346 Imaging Last Impressions Myocardial Perfusion Scan Nuc Med 04/19/17 0000 Signed Impressions: Service Date/Time: Wednesday, April 19, 2017 08:53 - CONCLUSION: 1. No reversible perfusion abnormality. 2. No focal wall motion abnormality with EF of 60%%. RISK CATEGORY: 1- Low Risk. <1%% annual mortality rate. Nuno Sanchez MD Chest X-Ray 04/17/17 1329 Signed Impressions: Service Date/Time: Monday, April 17, 2017 13:44 - CONCLUSION: Suspected mild left pleural effusion. Aram Olivas MD Objective Remarks GENERAL: Well-developed well-nourished. In no acute distress. SKIN: Warm and dry. Well-healed midline sternotomy scar. HEENT: Normocephalic. Pupils equal and round. Mucous membranes pink and moist. CARDIOVASCULAR: Regular rate and rhythm. No murmur appreciated. Chest wall exquisitely tender to palpation. RESPIRATORY: No accessory muscle use. Clear to auscultation. Breath sounds equal bilaterally. GASTROINTESTINAL: Abdomen soft, non-tender, nondistended. Bowel sounds x4. MUSCULOSKELETAL: No obvious deformities. No clubbing or cyanosis. No edema. NEUROLOGICAL: Awake and alert. No focal neurological deficits. Moves upper and lower extremities spontaneously. Normal speech. PSYCHIATRIC: Appropriate mood and affect; insight and judgment fair to normal. A/P Problem List: (1) Chest pain ICD Code: R07.9 Status: Acute Assessment and Plan 82-year-old female with history of diabetes, hypertension, hyperlipidemia, CAD status post CABG 03/03/17, presents with acute onset of chest pain on 04/17/17 Chest Pain, atypical: Sounds musculoskeletal, reproducible to palpation, likely secondary to recent sternotomy. ACS ruled out with negative serial cardiac enzymes x3 and EKG without acute ischemic changes. Continue patient's aspirin, plavix, metoprolol, statin. Consulted cardiology, ordered stress test which showed no ischemia. Cleared from cardiology perspective for discharge. Left Pleural Effusion: CXR shows mild left pleural effusion. Suspect effusion post op recent CABG. Encourage incentive spirometry and ambulation. Suggested repeat CXR in 1-2 weeks. Hypertension: chronic, labile, but reasonably controlled. Continue patient's metoprolol and HCTZ. Patient's losartan was discontinued on previous admission. Monitor BP. Hyperlipidemia: chronic, continue patient's statin. Diabetes Mellitus: chronic, continue patient's glimepiride. Monitor Accu-checks and cover with SSI. Monitor for hypoglycemia. Hypothyroidism: chronic, continue patient's synthroid. Back pain: Chronic. Neurologically intact. Continue plans for outpatient PCP follow-up. DVT Prophylaxis: SCDs Discharge Planning Discharge patient to home Condition on discharge: Improved Heart healthy diabetic Diet as tolerated Regular activity Follow-up with primary care physician Problem Qualifiers (1) Chest pain: Qualified Code: R07.9 - Chest pain, unspecified type Devyn Agosto Apr 19, 2017 11:22
[2017-04-19 11:25] VITALS: BP 160/73; PULSE 58; RESP 18; TEMP 97.6; O2SAT 97
--- NOTE | 2017-04-20 08:43 | EKG ---
Date Performed: 04/18/2017 Time Performed: 12:03:42 PTAGE: 82 years EKG: SINUS BRADYCARDIA LEFT BUNDLE BRANCH BLOCK ABNORMAL ECG PREVIOUS TRACING : 04/17/2017 13.30 DOCTOR: Fabian Sanchez Interpretating Date/Time 04/20/2017 08:40:46
== END 2017-04-19 12:30 | disposition home or self-care (01) ==
LOC: NEPC 13:07 → NEDA 15:40 → NEPGCP 17:41
PROVIDERS: ADMIT Hospitalist; ATTEND Hospitalist
DX: R07.89 Other chest pain (principal); J90 Pleural effusion, not elsewhere classified; I12.9 Hypertensive chronic kidney disease with stage 1 through stage 4 chronic kidney disease, or unspecified chronic kidney disease; E11.22 Type 2 diabetes mellitus with diabetic chronic kidney disease; N18.9 Chronic kidney disease, unspecified; I25.10 Atherosclerotic heart disease of native coronary artery without angina pectoris; E03.9 Hypothyroidism, unspecified; M54.9 Dorsalgia, unspecified; G89.29 Other chronic pain; E78.5 Hyperlipidemia, unspecified; F03.90 Unspecified dementia, unspecified severity, without behavioral disturbance, psychotic disturbance, mood disturbance, and anxiety; H40.9 Unspecified glaucoma; Z79.899 Other long term (current) drug therapy; R94.31 Abnormal electrocardiogram [ECG] [EKG]; Z95.1 Presence of aortocoronary bypass graft; Z87.891 Personal history of nicotine dependence; Z79.82 Long term (current) use of aspirin; Z79.84 Long term (current) use of oral hypoglycemic drugs
CPT/HCPCS: 71010; 78452; 80048; 82550; 82948; 83735; 84484; 85025; 85610; 85730; 93005; 93017; 94150; 97162; 99285; A9502; G0378; G8987; G8988; J1815; J2785